=== PATIENT | female | born 1940 | race Native Hawaiian/Other Pacific Islander ===

== ENCOUNTER 2018-10-24 00:41 | Inpatient (IN) ==
[2018-10-24] MEDS ORDERED: Sod Chloride 0.9% Inj 1,000 ML IV.SIG ONE (01:48)
[2018-10-24] MEDS ORDERED: Morphine Inj 4 MG/ML Vial IV.PUSH ONE (01:48)
--- NOTE | 2018-10-24 02:14 | CT ---
EXAM DATE: 10/24/2018 2:06 AM EST AGE/SEX: 77 years / Female INDICATIONS: Abdomen pain. CLINICAL DATA: This is the patient's initial encounter. Patient reports that signs and symptoms have been present for 1 day and indicates a pain score of 5/10. MEDICAL/SURGICAL HISTORY: None. None. RADIATION DOSE: 8.24 CTDI (mGy) COMPARISON: No prior exams available for comparison. TECHNIQUE: Multiple contiguous axial images were obtained through the abdomen. Images were obtained using multiple row detector helical technique. Using automated exposure control and adjustment of the mA and/or kV according to patient size, radiation dose was kept as low as reasonably achievable to o btain optimal diagnostic quality images. DICOM format image data is available electronically for rev iew and comparison. FINDINGS: Breathing motion degraded. Lower Lungs: The visualized lower lungs are clear. Liver: The liver has a homogeneous density without space-occupying lesion. There is no dilation of th e biliary tree. Gallbladder is well distended. No calcified stone, wall thickening, or surrounding fl uid. Spleen: Homogeneous density without enlargement. Pancreas: Unremarkable without mass or calcification. Kidneys: Normal in size and shape. No evidence of mass or hydronephrosis. Adrenal Glands: Unremarkable. Aorta: The aorta and proximal iliac vessels are grossly unremarkable without aneurysmal dilation. Bowel/Mesentery: The bowel loops are grossly unremarkable. The cecum and sigmoid colon have a normal configuration. The appendix is not definitively identified but no inflammatory process observed with in the right lower quadrant. Abdominal Wall: Intact. Retroperitoneum: No evidence of adenopathy in the retrocrural, para-aortic, or deep pelvic regions. Bladder: Contours are smooth. Reproductive Organs: Prior hysterectomy. No abnormal masses or calcifications seen. Inguinal: The inguinal region is unremarkable without evidence of adenopathy. Bony Structures: A degenerative and scoliotic spine. CONCLUSION: 1. The gallbladder is well distended but no calcified stones, wall thickening, or surrounding fluid observed. Otherwise, unremarkable exam. Electronically signed by: Harpal Love MD Board Certified Radiologist 10/24/2018 2:13 AM EST
--- NOTE | 2018-10-24 02:16 | ED ---
HPI General Chief Complaint: Abdominal Pain Stated Complaint: Medical,Evac Time Seen by Provider: 10/24/18 01:16 Source: family Mode of arrival: ambulatory Limitations: no limitations History of Present Illness HPI narrative: 77-year-old female was brought to the emergency room by her daughter with history of abdominal pain that started around noon yesterday. Patient does not speak Welsh but the family is there translating. As per the granddaughter the pain seems to wax and wane. Patient has been quite uncomfortable. She has vomited 3 or 4 times but mostly mucus was noticed. No bowel movement in past 24 hours. Patient seemed quite uncomfortable but the vital signs were stable. She has a previous history of hysterectomy. No aggravating or relieving symptoms identified of the pain. The location of the pain is mostly upper abdomen radiating from the epigastrium to bilateral upper quadrants. Related Data Home Medications Medication Instructions Recorded Confirmed allopurinol 100 mg PO DAILY 10/24/18 10/24/18 amlodipine 5 mg PO DAILY 10/24/18 10/24/18 anastrozole 1 mg PO DAILY 10/24/18 10/24/18 atorvastatin 10 mg PO DAILY 10/24/18 10/24/18 furosemide 20 mg PO DAILY 10/24/18 10/24/18 gabapentin 300 mg PO DAILY 10/24/18 10/24/18 isosorbide mononitrate 30 mg PO DAILY 10/24/18 10/24/18 loratadine 10 mg DAILY 10/24/18 10/24/18 losartan 50 mg PO DAILY 10/24/18 10/24/18 metformin 1,000 mg PO QPM 10/24/18 10/24/18 ranitidine HCl 150 mg PO DAILY 10/24/18 10/24/18 Previous Rx's Medication Instructions Recorded amoxicillin-pot clavulanate 1 tab PO Q12H #20 tab 10/26/18 [Augmentin] Allergies Allergy/AdvReac Type Severity Reaction Status Date / Time No Known Allergies Allergy Verified 10/24/18 01:48 Review of Systems ROS: all other systems reviewed are negative [facility] Medical History Medical History H/O: hysterectomy (Acute) Hypertension (Acute) Diabetes (Acute) Hx of breast cancer (Acute) Social History Social History Substance History: No History of Abuse Second Hand Smoke Exposure: No Smoking Status: Never smoker How Often Do You Have a Drink Containing Alcohol: Never Recent Travel in [facility] within the Last 8 Weeks: No Recent Out of Country Travel within the Last 8 Weeks: No Immunization History Tetanus Immunization: Unsure Exam Narrative Exam Narrative: GENERAL: Awake, alert, significant distress and anxious SKIN: Focused skin assessment warm/dry. HEAD: Atraumatic. Normocephalic. EYES: Pupils equal and round. No scleral icterus. No injection or drainage. ENT: No nasal bleeding or discharge. Mucous membranes pink and moist. NECK: Trachea midline. No JVD. CARDIOVASCULAR: Regular rate and rhythm. No murmur appreciated. RESPIRATORY: No accessory muscle use. Clear to auscultation. Breath sounds equal bilaterally. GASTROINTESTINAL: Abdomen soft, non-tender, nondistended. Hepatic and splenic margins not palpable. Hyperactive bowel sounds MUSCULOSKELETAL: No obvious deformities. No clubbing. No cyanosis. No edema. NEUROLOGICAL: Awake and alert. No obvious cranial nerve deficits. Motor grossly within normal limits. Normal speech. PSYCHIATRIC: Appropriate mood and affect; insight and judgment normal. Course Initial Documented Vital Signs Temperature 98.8 F 10/24/18 00:42 Pulse Rate 91 H 10/24/18 00:42 Respiratory Rate 16 10/24/18 00:42 Blood Pressure 148/74 H 10/24/18 00:42 Pulse Oximetry 99 10/24/18 00:42 Last Documented Vital Signs Temperature 97.6 F 10/26/18 12:00 Pulse Rate 81 10/26/18 12:00 Respiratory Rate 18 10/26/18 12:00 Blood Pressure 156/77 H 10/26/18 12:00 Pulse Oximetry 100 10/26/18 12:00 Critical Care Time Critical Care Time: Yes Total Critical Care Time: 30 Attestation: Aggregate critical care time was 30 minutes. Time to perform other separately billable procedures was not included in the critical care time. My time did not include minutes spent treating any other patients simultaneously or on activities that did not directly contribute to the patient's treatment. The services I provided to this patient were to treat and/or prevent clinically significant deterioration that could result in: Sepsis, sepsis protocol I provided critical care services requiring my management, as noted below: Chart data review, documentation time, medication orders and management, vital sign assessments/reviewing monitor data, ordering and reviewing lab tests, ordering and interpreting/reviewing x-rays and diagnostic studies, care of the patient and discussion of the patient with the admitting physicians. Medical Decision Making MDM Narrative Medical decision making narrative: 2:15 AM my suspicion was high for small bowel obstruction. Of ordered blood work and a CT scan. Patient has been given pain medication and 1 L of IV fluid. Awaiting for the CT scan report as well as blood test result. I will reassess the patient in a little bit. 3:[address] scan does not show any small bowel obstruction but significantly dilated gallbladder without any stones. Blood test is suggestive of significant leukocytosis with left shift, elevated LFTs and bili. Lactic acid was elevated. I have ordered IV Zosyn and vancomycin for aseptic coverage and MRCP. I discussed the case with GI Dr. Lerma who was okay with the current management. He also recommended to consult surgery. I discussed the case with Dr. Sarkar who is on for general surgeon. He is okay with the management as well. Patient will be admitted to the hospitalist. Awaiting for the hospitalist to call back. She has been hemodynamically stable. Family has been updated about this plan. 3:24 AM the lipase just came back and is significantly elevated. Her [place] criteria score is 2 Medical Screen Exam Complete: Yes Emergency Medical Condition: Yes Lab Data Result diagrams: 10/26/18 04:35 10/26/18 04:35 Lab Results 10/24/18 10/24/18 10/24/18 Range/Units 02:00 02:00 02:00 WBC 18.4 H (4.0-11.0) th/mm3 RBC 4.63 (4.00-5.30) mil/mm3 Hgb 11.9 (11.6-15.3) gm/dL Hct 37.3 (35.0-46.0) % MCV 80.6 (80.0-100.0) fL MCH 25.6 L (27.0-34.0) pg MCHC 31.7 L (32.0-36.0) % RDW 15.4 (11.6-17.2) % Plt Count 230 (150-450) th/mm3 MPV 9.5 (7.0-11.0) fL Neut % (Auto) 94.0 H (16.0-70.0) % Lymph % (Auto) 1.8 L (9.0-44.0) % [place] % (Auto) 3.8 (0.0-8.0) % Eos % (Auto) 0.0 (0.0-4.0) % Baso % (Auto) 0.4 (0.0-2.0) % Neut # (Auto) 17.3 H (1.8-7.7) th/mm3 Lymph # (Auto) 0.3 L (1.0-4.8) th/mm3 [place] # (Auto) 0.7 (0.0-0.9) th/mm3 Eos # (Auto) 0.0 (0.0-0.4) th/mm3 Baso # (Auto) 0.1 (0.0-0.2) th/mm3 WBC Differential . Differential Comment Auto diff final PT 10.7 (9.8-11.6) sec INR 1.1 Ratio Sodium 135 L (136-145) meq/L Potassium 4.2 (3.5-5.1) meq/L Chloride 101 (98-107) meq/L Carbon Dioxide 23.3 (21.0-32.0) meq/L Anion Gap 11 (5-15) meq/L BUN 17 (7-18) mg/dL Creatinine 1.23 H (0.50-1.00) mg/dL Estimated GFR 42 L (>89) mL/min POC Glucose (68-110) mg/dl Random Glucose 152 H (74-106) mg/dL Lactic Acid (0.4-2.0) mmol/L Calcium 8.8 (8.5-10.1) mg/dL Magnesium 1.4 L (1.5-2.5) mg/dL Iron (50-170) mcg/dL TIBC (250-450) mcg/dL % Saturation (20-50) % Ferritin (8-252) ng/mL Total Bilirubin 2.0 H (0.2-1.0) mg/dL AST 181 H (15-37) U/L ALT 120 H (10-53) U/L Alkaline Phosphatase 83 (45-117) U/L Troponin I Less than 0.02 L (0.02-0.05) ng/mL Total Protein 8.1 (6.4-8.2) g/dL Albumin 3.8 (3.4-5.0) g/dL Triglycerides (42-150) mg/dL Lipase 75959 H (73-393) U/L Urine Color (Yellw/Straw) Urine Clarity (Clear) Urine pH (5.0-8.5) Ur Specific [place] (1.002-1.035) Urine Protein (Neg-Trace) mg/dL Urine Glucose (UA) (Negative) mg/dL Urine Ketones (Negative) mg/dL Urine Occult Blood (Negative) Urine Nitrate (Negative) Urine Bilirubin (Negative) Urine Urobilinogen (Less than 2) mg/dL Ur Leukocyte Esterase (Negative) Urine RBC (0-3) /hpf Ur Squamous Epith Cells (0-5) /hpf Micro UA Comment Ur Microscopic Review Urine Culture Comments 10/24/18 10/24/18 10/24/18 Range/Units 02:30 04:25 05:10 WBC (4.0-11.0) th/mm3 RBC (4.00-5.30) mil/mm3 Hgb (11.6-15.3) gm/dL Hct (35.0-46.0) % MCV (80.0-100.0) fL MCH (27.0-34.0) pg MCHC (32.0-36.0) % RDW (11.6-17.2) % Plt Count (150-450) th/mm3 MPV (7.0-11.0) fL Neut % (Auto) (16.0-70.0) % Lymph % (Auto) (9.0-44.0) % [place] % (Auto) (0.0-8.0) % Eos % (Auto) (0.0-4.0) % Baso % (Auto) (0.0-2.0) % Neut # (Auto) (1.8-7.7) th/mm3 Lymph # (Auto) (1.0-4.8) th/mm3 [place] # (Auto) (0.0-0.9) th/mm3 Eos # (Auto) (0.0-0.4) th/mm3 Baso # (Auto) (0.0-0.2) th/mm3 WBC Differential Differential Comment PT (9.8-11.6) sec INR Ratio Sodium (136-145) meq/L Potassium (3.5-5.1) meq/L Chloride (98-107) meq/L Carbon Dioxide (21.0-32.0) meq/L Anion Gap (5-15) meq/L BUN (7-18) mg/dL Creatinine (0.50-1.00) mg/dL Estimated GFR (>89) mL/min POC Glucose (68-110) mg/dl Random Glucose (74-106) mg/dL Lactic Acid 2.7 H 2.8 H (0.4-2.0) mmol/L Calcium (8.5-10.1) mg/dL Magnesium (1.5-2.5) mg/dL Iron (50-170) mcg/dL TIBC (250-450) mcg/dL % Saturation (20-50) % Ferritin (8-252) ng/mL Total Bilirubin (0.2-1.0) mg/dL AST (15-37) U/L ALT (10-53) U/L Alkaline Phosphatase (45-117) U/L Troponin I (0.02-0.05) ng/mL Total Protein (6.4-8.2) g/dL Albumin (3.4-5.0) g/dL Triglycerides (42-150) mg/dL Lipase (73-393) U/L Urine Color Yellow (Yellw/Straw) Urine Clarity Clear (Clear) Urine pH 7.0 (5.0-8.5) Ur Specific [place] 1.009 (1.002-1.035) Urine Protein Negative (Neg-Trace) mg/dL Urine Glucose (UA) Negative (Negative) mg/dL Urine Ketones Negative (Negative) mg/dL Urine Occult Blood Negative (Negative) Urine Nitrate Negative (Negative) Urine Bilirubin Negative (Negative) Urine Urobilinogen Less than 2 (Less than 2) mg/dL Ur Leukocyte Esterase Negative (Negative) Urine RBC 1 (0-3) /hpf Ur Squamous Epith Cells <1 (0-5) /hpf Micro UA Comment Culture not ind Ur Microscopic Review Not Reportable Urine Culture Comments Culture not ind 10/24/18 10/24/18 10/24/18 Range/Units 08:14 12:00 12:21 WBC (4.0-11.0) th/mm3 RBC (4.00-5.30) mil/mm3 Hgb (11.6-15.3) gm/dL Hct (35.0-46.0) % MCV (80.0-100.0) fL MCH (27.0-34.0) pg MCHC (32.0-36.0) % RDW (11.6-17.2) % Plt Count (150-450) th/mm3 MPV (7.0-11.0) fL Neut % (Auto) (16.0-70.0) % Lymph % (Auto) (9.0-44.0) % [place] % (Auto) (0.0-8.0) % Eos % (Auto) (0.0-4.0) % Baso % (Auto) (0.0-2.0) % Neut # (Auto) (1.8-7.7) th/mm3 Lymph # (Auto) (1.0-4.8) th/mm3 [place] # (Auto) (0.0-0.9) th/mm3 Eos # (Auto) (0.0-0.4) th/mm3 Baso # (Auto) (0.0-0.2) th/mm3 WBC Differential Differential Comment PT (9.8-11.6) sec INR Ratio Sodium (136-145) meq/L Potassium (3.5-5.1) meq/L Chloride (98-107) meq/L Carbon Dioxide (21.0-32.0) meq/L Anion Gap (5-15) meq/L BUN (7-18) mg/dL Creatinine (0.50-1.00) mg/dL Estimated GFR (>89) mL/min POC Glucose 126 H 96 (68-110) mg/dl Random Glucose (74-106) mg/dL Lactic Acid (0.4-2.0) mmol/L Calcium (8.5-10.1) mg/dL Magnesium (1.5-2.5) mg/dL Iron (50-170) mcg/dL TIBC (250-450) mcg/dL % Saturation (20-50) % Ferritin (8-252) ng/mL Total Bilirubin (0.2-1.0) mg/dL AST (15-37) U/L ALT (10-53) U/L Alkaline Phosphatase (45-117) U/L Troponin I (0.02-0.05) ng/mL Total Protein (6.4-8.2) g/dL Albumin (3.4-5.0) g/dL Triglycerides 48 (42-150) mg/dL Lipase (73-393) U/L Urine Color (Yellw/Straw) Urine Clarity (Clear) Urine pH (5.0-8.5) Ur Specific [place] (1.002-1.035) Urine Protein (Neg-Trace) mg/dL Urine Glucose (UA) (Negative) mg/dL Urine Ketones (Negative) mg/dL Urine Occult Blood (Negative) Urine Nitrate (Negative) Urine Bilirubin (Negative) Urine Urobilinogen (Less than 2) mg/dL Ur Leukocyte Esterase (Negative) Urine RBC (0-3) /hpf Ur Squamous Epith Cells (0-5) /hpf Micro UA Comment Ur Microscopic Review Urine Culture Comments 10/24/18 10/24/18 10/25/18 Range/Units 13:44 13:44 05:00 WBC (4.0-11.0) th/mm3 RBC (4.00-5.30) mil/mm3 Hgb (11.6-15.3) gm/dL Hct (35.0-46.0) % MCV (80.0-100.0) fL MCH (27.0-34.0) pg MCHC (32.0-36.0) % RDW (11.6-17.2) % Plt Count (150-450) th/mm3 MPV (7.0-11.0) fL Neut % (Auto) (16.0-70.0) % Lymph % (Auto) (9.0-44.0) % [place] % (Auto) (0.0-8.0) % Eos % (Auto) (0.0-4.0) % Baso % (Auto) (0.0-2.0) % Neut # (Auto) (1.8-7.7) th/mm3 Lymph # (Auto) (1.0-4.8) th/mm3 [place] # (Auto) (0.0-0.9) th/mm3 Eos # (Auto) (0.0-0.4) th/mm3 Baso # (Auto) (0.0-0.2) th/mm3 WBC Differential Differential Comment PT (9.8-11.6) sec INR Ratio Sodium 139 140 (136-145) meq/L Potassium 3.9 3.9 (3.5-5.1) meq/L Chloride 106 110 H (98-107) meq/L Carbon Dioxide 23.3 19.2 L (21.0-32.0) meq/L Anion Gap 10 11 (5-15) meq/L BUN 13 13 (7-18) mg/dL Creatinine 0.99 1.04 H (0.50-1.00) mg/dL Estimated GFR (>89) mL/min POC Glucose (68-110) mg/dl Random Glucose 87 88 (74-106) mg/dL Lactic Acid 1.5 (0.4-2.0) mmol/L Calcium 8.3 L 8.2 L (8.5-10.1) mg/dL Magnesium 1.4 L (1.5-2.5) mg/dL Iron (50-170) mcg/dL TIBC (250-450) mcg/dL % Saturation (20-50) % Ferritin (8-252) ng/mL Total Bilirubin 2.4 H 3.0 H (0.2-1.0) mg/dL AST 107 H 81 H (15-37) U/L ALT 101 H 85 H (10-53) U/L Alkaline Phosphatase 65 78 (45-117) U/L Troponin I (0.02-0.05) ng/mL Total Protein 6.7 D 6.6 (6.4-8.2) g/dL Albumin 2.9 L D 2.6 L (3.4-5.0) g/dL Triglycerides (42-150) mg/dL Lipase 08951 H 6004 H (73-393) U/L Urine Color (Yellw/Straw) Urine Clarity (Clear) Urine pH (5.0-8.5) Ur Specific [place] (1.002-1.035) Urine Protein (Neg-Trace) mg/dL Urine Glucose (UA) (Negative) mg/dL Urine Ketones (Negative) mg/dL Urine Occult Blood (Negative) Urine Nitrate (Negative) Urine Bilirubin (Negative) Urine Urobilinogen (Less than 2) mg/dL Ur Leukocyte Esterase (Negative) Urine RBC (0-3) /hpf Ur Squamous Epith Cells (0-5) /hpf Micro UA Comment Ur Microscopic Review Urine Culture Comments 10/25/18 10/25/18 10/25/18 Range/Units 05:00 07:34 11:52 WBC 9.9 (4.0-11.0) th/mm3 RBC 4.38 (4.00-5.30) mil/mm3 Hgb 11.4 L (11.6-15.3) gm/dL Hct 35.3 (35.0-46.0) % MCV 80.7 (80.0-100.0) fL MCH 26.1 L (27.0-34.0) pg MCHC 32.3 (32.0-36.0) % RDW 15.2 (11.6-17.2) % Plt Count 175 (150-450) th/mm3 MPV 9.2 (7.0-11.0) fL Neut % (Auto) 92.7 H (16.0-70.0) % Lymph % (Auto) 2.6 L (9.0-44.0) % [place] % (Auto) 4.2 (0.0-8.0) % Eos % (Auto) 0.1 (0.0-4.0) % Baso % (Auto) 0.4 (0.0-2.0) % Neut # (Auto) 9.2 H (1.8-7.7) th/mm3 Lymph # (Auto) 0.3 L (1.0-4.8) th/mm3 [place] # (Auto) 0.4 (0.0-0.9) th/mm3 Eos # (Auto) 0.0 (0.0-0.4) th/mm3 Baso # (Auto) 0.0 (0.0-0.2) th/mm3 WBC Differential . Differential Comment Auto diff final PT (9.8-11.6) sec INR Ratio Sodium (136-145) meq/L Potassium (3.5-5.1) meq/L Chloride (98-107) meq/L Carbon Dioxide (21.0-32.0) meq/L Anion Gap (5-15) meq/L BUN (7-18) mg/dL Creatinine (0.50-1.00) mg/dL Estimated GFR (>89) mL/min POC Glucose 73 83 (68-110) mg/dl Random Glucose (74-106) mg/dL Lactic Acid (0.4-2.0) mmol/L Calcium (8.5-10.1) mg/dL Magnesium (1.5-2.5) mg/dL Iron (50-170) mcg/dL TIBC (250-450) mcg/dL % Saturation (20-50) % Ferritin (8-252) ng/mL Total Bilirubin (0.2-1.0) mg/dL AST (15-37) U/L ALT (10-53) U/L Alkaline Phosphatase (45-117) U/L Troponin I (0.02-0.05) ng/mL Total Protein (6.4-8.2) g/dL Albumin (3.4-5.0) g/dL Triglycerides (42-150) mg/dL Lipase (73-393) U/L Urine Color (Yellw/Straw) Urine Clarity (Clear) Urine pH (5.0-8.5) Ur Specific [place] (1.002-1.035) Urine Protein (Neg-Trace) mg/dL Urine Glucose (UA) (Negative) mg/dL Urine Ketones (Negative) mg/dL Urine Occult Blood (Negative) Urine Nitrate (Negative) Urine Bilirubin (Negative) Urine Urobilinogen (Less than 2) mg/dL Ur Leukocyte Esterase (Negative) Urine RBC (0-3) /hpf Ur Squamous Epith Cells (0-5) /hpf Micro UA Comment Ur Microscopic Review Urine Culture Comments 10/26/18 10/26/18 10/26/18 Range/Units 04:35 04:35 04:35 WBC 9.1 (4.0-11.0) th/mm3 RBC 3.94 L (4.00-5.30) mil/mm3 Hgb 10.2 L (11.6-15.3) gm/dL Hct 31.2 L (35.0-46.0) % MCV 79.2 L (80.0-100.0) fL MCH 25.8 L (27.0-34.0) pg MCHC 32.6 (32.0-36.0) % RDW 15.6 (11.6-17.2) % Plt Count 151 (150-450) th/mm3 MPV 9.8 (7.0-11.0) fL Neut % (Auto) 83.6 H (16.0-70.0) % Lymph % (Auto) 9.7 (9.0-44.0) % [place] % (Auto) 5.3 (0.0-8.0) % Eos % (Auto) 1.2 (0.0-4.0) % Baso % (Auto) 0.2 (0.0-2.0) % Neut # (Auto) 7.6 (1.8-7.7) th/mm3 Lymph # (Auto) 0.9 L (1.0-4.8) th/mm3 [place] # (Auto) 0.5 (0.0-0.9) th/mm3 Eos # (Auto) 0.1 (0.0-0.4) th/mm3 Baso # (Auto) 0.0 (0.0-0.2) th/mm3 WBC Differential . Differential Comment Auto diff final PT (9.8-11.6) sec INR Ratio Sodium 141 (136-145) meq/L Potassium 3.5 (3.5-5.1) meq/L Chloride 113 H (98-107) meq/L Carbon Dioxide 19.8 L (21.0-32.0) meq/L Anion Gap 8 (5-15) meq/L BUN 11 (7-18) mg/dL Creatinine 0.75 (0.50-1.00) mg/dL Estimated GFR (>89) mL/min POC Glucose (68-110) mg/dl Random Glucose 89 (74-106) mg/dL Lactic Acid (0.4-2.0) mmol/L Calcium 7.8 L (8.5-10.1) mg/dL Magnesium (1.5-2.5) mg/dL Iron 30 L (50-170) mcg/dL TIBC 218 L (250-450) mcg/dL % Saturation 13.7 L (20-50) % Ferritin 91 (8-252) ng/mL Total Bilirubin 2.5 H (0.2-1.0) mg/dL AST 66 H (15-37) U/L ALT 68 H (10-53) U/L Alkaline Phosphatase 83 (45-117) U/L Troponin I (0.02-0.05) ng/mL Total Protein 6.0 L D (6.4-8.2) g/dL Albumin 2.3 L (3.4-5.0) g/dL Triglycerides (42-150) mg/dL Lipase 4954 H (73-393) U/L Urine Color (Yellw/Straw) Urine Clarity (Clear) Urine pH (5.0-8.5) Ur Specific [place] (1.002-1.035) Urine Protein (Neg-Trace) mg/dL Urine Glucose (UA) (Negative) mg/dL Urine Ketones (Negative) mg/dL Urine Occult Blood (Negative) Urine Nitrate (Negative) Urine Bilirubin (Negative) Urine Urobilinogen (Less than 2) mg/dL Ur Leukocyte Esterase (Negative) Urine RBC (0-3) /hpf Ur Squamous Epith Cells (0-5) /hpf Micro UA Comment Ur Microscopic Review Urine Culture Comments Imaging Data Radiologist's impression: Abdomen/Pelvis CT 10/24/18 01:48 CONCLUSION: 1. The gallbladder is well distended but no calcified stones, wall thickening, or surrounding fluid observed. Otherwise, unremarkable exam. Chest X-Ray 10/24/18 02:22 CONCLUSION: No acute cardiopulmonary disease. Cholangiopancreatography MRI 10/24/18 03:06 CONCLUSION: 1. No gallstones or inflammatory change involving the gallbladder. ECG Data Attestation: I personally reviewed and interpreted this ECG as follows: Interpretation: Twelve-lead EKG was reviewed by me. Normal sinus rhythm, normal axis, nonspecific ST-T wave changes. Heart rate of 78 bpm. Discharge Plan Discharge Disposition Patient Disposition: ED Admit(ED Internal Use Only) Discharge Condition Condition: Good Discharge Order Discharge Orders: Discharge Order (Routine); Ordered 10/26/18 Ordered By: Reema Hess ED Use Only Admit Order (Routine); Ordered 10/24/18 Ordered By: Denisha Crowell Discharge Details Anticipated Discharge Date: 10/26/18 Physicians Team ED Provider: Denisha Crowell Primary Care Provider: UNKNOWN, Attending Provider: Reema Hess Other Providers: Sami Lerma ; Ed Sarkar ; [facility],Insurance Status ED Status: Left Department Discharge Information Discharge Date/Time: 10/24/18 05:35
[2018-10-24 02:19] LABS: Baso # (Auto) 0.1 th/mm3 (0.0-0.2); Baso % (Auto) 0.4 % (0.0-2.0); Hematocrit 37.3 % (35.0-46.0); Hemoglobin 11.9 gm/dL (11.6-15.3); Lymph # (Auto) 0.3 th/mm3 (1.0-4.8); Lymph % (Auto) 1.8 % (9.0-44.0); Mean Corpuscular HGB Conc 31.7 % (32.0-36.0); Mean Corpuscular Hemoglobin 25.6 pg (27.0-34.0); Mean Corpuscular Volume 80.6 fL (80.0-100.0); Mean Platelet Volume 9.5 fL (7.0-11.0); Mono # (Auto) 0.7 th/mm3 (0.0-0.9); Mono % (Auto) 3.8 % (0.0-8.0); Neut # (Auto) 17.3 th/mm3 (1.8-7.7); Platelet Count 230 th/mm3 (150-450); Red Blood Count 4.63 mil/mm3 (4.00-5.30); Red Cell Distribution Width 15.4 % (11.6-17.2); White Blood Count 18.4 th/mm3 (4.0-11.0)
[2018-10-24 02:29] LABS: INR 1.1 Ratio; Prothrombin Time 10.7 sec (9.8-11.6)
[2018-10-24 02:42] LABS: Alkaline Phosphatase 83 U/L (45-117); Total Protein 8.1 g/dL (6.4-8.2)
[2018-10-24 02:45] LABS: Alanine Aminotransferase 120 U/L (10-53); Albumin 3.8 g/dL (3.4-5.0); Anion Gap 11 meq/L (5-15); Blood Urea Nitrogen 17 mg/dL (7-18); Calcium 8.8 mg/dL (8.5-10.1); Carbon Dioxide 23.3 meq/L (21.0-32.0); Chloride 101 meq/L (98-107); Glomerular Filtration Rate 42 mL/min (>89); Glucose,Random 152 mg/dL (74-106); Sodium 135 meq/L (136-145)
[2018-10-24 02:46] LABS: Aspartate Aminotransferase 181 U/L (15-37); Magnesium 1.4 mg/dL (1.5-2.5); Potassium 4.2 meq/L (3.5-5.1)
[2018-10-24] MEDS ORDERED: Vancomycin Inj 1,000 MG in Sodium Chlor 0.9% Inj 250 ML IV.SIG ONE (03:04)
[2018-10-24] MEDS ORDERED: Mag Sulf 1 gm/100 ml Premix 100 ML IV.SIG ONE ×2 (03:06→10:00)
--- NOTE | 2018-10-24 03:13 | XR ---
EXAM DATE: 10/24/2018 3:11 AM EST AGE/SEX: 77 years / Female INDICATIONS: Abdomen pain today. CLINICAL DATA: This is the patient's initial encounter. Patient reports that signs and symptoms have been present for 1 day and indicates a pain score of 5/10. MEDICAL/SURGICAL HISTORY: None. None. COMPARISON: No prior exams available for comparison. FINDINGS: A single AP view of the chest demonstrates the lungs to be symmetrically aerated without evidence of mass, infiltrate or effusion. The cardiomediastinal contours are unremarkable. Aorta is calcified an d mildly tortuous. A degenerative thoracic spine. Degenerative changes involving the shoulders bilate rally. CONCLUSION: No acute cardiopulmonary disease. Electronically signed by: Harpal Love MD Board Certified Radiologist 10/24/2018 3:12 AM EST
[2018-10-24] MEDS ORDERED: Sod Chloride 0.9% Inj 1,000 ML IV.SIG SCH (03:15)
[2018-10-24] MEDS ORDERED: Piperacil/Tazo 4.5 GM Premix 4.5 GM/100 ML BAG IV.SIG SCH (03:15)
[2018-10-24 03:17] LABS: Lipase 52220 U/L (73-393)
[2018-10-24] MEDS ORDERED: Morphine Sulfate Inj 2 MG/ML Vial IV.PUSH PRN (03:26)
[2018-10-24] MEDS ORDERED: Bisacodyl 10 MG Supp RECTAL PRN (03:26)
[2018-10-24] MEDS ORDERED: Acetaminophen 325 MG Tablet PO PRN (03:26)
--- NOTE | 2018-10-24 04:07 | P.HPIM ---
History of Present Illness Primary Care Physician: UNKNOWN History of Present Illness: This is a 77-year-old [place] female with PMH of HTN , DM and h/o Breast CA who was brought to the ER for c/o abdominal pain, nausea and vomiting. History obtained from family at bedside. State pt w/ acute onset abdominal pain, severe, 10/10, located in RUQ, non-radiating, associated w / nausea, vomiting and decreased PO intake. No fever or diarrhea. No h/o similar symptoms. On arrival, BP 148/74, HR 91, O2 sat 99% on RA, Afebrile. WBC 18.4. INR 1.1. Creatinine 1.23, no previous labs for comparison. Lactic Acid 2.7. Magnesium 1.4. Total Bili 2.0. AST 181, ALT 120, ALP 83. Troponin negative. Lipase 52,220. CXR negative. CT Abdomen/Pelvis distention of gallbladder but no stones or thickening. S/p IV Abx, Gen Sx and GI consulted by ER physician, will eval in am. MRCP pending. Diagnosis (1) Sepsis: (2) Cholecystitis: (3) DARREN (acute kidney injury): (4) Pancreatitis: Review of Systems PAST FAMILY HISTORY: Reviewed. No h/o DM or CAD Review of Systems: all other systems reviewed are negative [facility] Medical History Medical History Diabetes (Acute) Hx of breast cancer (Acute) Hypertension (Acute) Social History Social History Substance History: No History of Abuse Second Hand Smoke Exposure: No Smoking Status: Never smoker How Often Do You Have a Drink Containing Alcohol: Never Recent Travel in [place] within the Last 8 Weeks: No Recent Out of Country Travel within the Last 8 Weeks: Yes Immunization History Tetanus Immunization: Unsure Medications and Allergies Allergies Allergy/AdvReac Type Severity Reaction Status Date / Time No Known Allergies Allergy Verified 10/24/18 01:48 Home Medications Medication Instructions Recorded Confirmed Type allopurinol 100 mg PO DAILY 10/24/18 10/24/18 History amlodipine 5 mg PO DAILY 10/24/18 10/24/18 History anastrozole 1 mg PO DAILY 10/24/18 10/24/18 History atorvastatin 10 mg PO DAILY 10/24/18 10/24/18 History furosemide 20 mg PO DAILY 10/24/18 10/24/18 History gabapentin 300 mg PO DAILY 10/24/18 10/24/18 History isosorbide mononitrate 30 mg PO DAILY 10/24/18 10/24/18 History loratadine 10 mg DAILY 10/24/18 10/24/18 History losartan 50 mg PO DAILY 10/24/18 10/24/18 History metformin 1,000 mg PO QPM 10/24/18 10/24/18 History ranitidine HCl 150 mg PO DAILY 10/24/18 10/24/18 History Active Medications: Active Medications Acetaminophen (Tylenol) 650 mg PO Q4H PRN PRN Reason: Temp > 100.4 Bisacodyl (Dulcolax Supp) 10 mg RECTAL DAILY PRN PRN Reason: SEVERE CONSITIPATION Piperacillin/Tazobactam/Dextrose (Zosyn 4.5 Gm Premix) 4.5 gm in 100 mls @ 200 mls/hr IV.SIG ONCE PILAR Vancomycin HCl 1,000 mg/ (Sodium Chloride) 250 mls @ 250 mls/hr IV.SIG ONCE ONE Stop: 10/24/18 04:03 Magnesium Sulfate/Dextrose (Magnesium Sulfate 1 Gm/D5w 100 Ml Premix) 100 mls @ 100 mls/hr IV.SIG ONCE ONE Stop: 10/24/18 04:05 Sodium Chloride (Ns Inj) 1,000 mls @ 1,000 mls/hr IV.SIG BOLUS PILAR Stop: 10/24/18 04:14 Piperacillin/Tazobactam/Dextrose (Zosyn 4.5 Gm Premix) 4.5 gm in 100 mls @ 200 mls/hr IV.SIG Q6H PILAR Sodium Chloride (Ns Inj) 1,000 mls @ 100 mls/hr IV.CONT .Q10H PILAR Morphine Sulfate (Morphine Inj) 2 mg IV.PUSH Q4H PRN PRN Reason: PAIN SCALE 6 TO 10 Ondansetron HCl (Zofran Inj) 4 mg IV.PUSH Q6H PRN PRN Reason: NAUSEA OR VOMITING Sodium Chloride (Ns Flush) 2 ml IV.FLUSH PRN PRN PRN Reason: FLUSH AFTER USING IV ACCESS Sodium Chloride (Ns Flush) 2 ml IV.FLUSH PRN PRN PRN Reason: FLUSH AFTER USING IV ACCESS Sodium Chloride (Ns Flush) 2 ml IV.FLUSH BID PILAR Physical Exam Vital signs: Vital Signs 10/24/18 00:42 Temperature 98.8 F Pulse Rate 91 H Respiratory Rate 16 Blood Pressure 148/74 H Pulse Oximetry 99 Intake & Output 10/23/18 10/23/18 10/24/18 06:59 18:59 06:59 Weight 72.575 kg Narrative: PE: GENERAL: Pleasant elderly [place] female in no acute distress, appears to feel unwell. Daughter and granddaughter at bedside SKIN: Focused skin assessment warm and dry. HEENT: PERRLA, EOMI. No scleral icterus or conjunctival pallor. No lid lag or facial droop. CARDIOVASCULAR: Regular rate and rhythm. No obvious murmurs to auscultation. No chest tenderness to palpation. RESPIRATORY: No obvious rhonchi or wheezing. Clear to auscultation. Breath sounds equal bilaterally. GASTROINTESTINAL: Abdomen soft, RUQ tenderness to palpation, nondistended. BS normal. MUSCULOSKELETAL: Extremities without clubbing, cyanosis, or edema. No obvious deformities. NEUROLOGICAL: Awake, alert and oriented x4. No focal neurologic deficits. Moving both upper and lower extremities spontaneously. PSYCHIATRIC: Appropriate mood and affect. Insight and judgment normal. Results Labs CBC & Chem 7: 10/24/18 02:00 10/24/18 02:00 Imaging Impressions Abdomen/Pelvis CT 10/24/18 01:48 CONCLUSION: 1. The gallbladder is well distended but no calcified stones, wall thickening, or surrounding fluid observed. Otherwise, unremarkable exam. Chest X-Ray 10/24/18 02:22 CONCLUSION: No acute cardiopulmonary disease. Caprini VTE Risk Assessment Caprini VTE Risk Assessment: No/Low Risk (score <= 1) Caprini Risk Assessment Model: Point Value = 1 Point Value = 2 Point Value = 3 Point Value = 5 Age 41-60 Minor surgery BMI > 25 kg/m2 Swollen legs Varicose veins or History of unexplained or recurrent spontaneous Oral contraceptives or hormone replacement Sepsis (< 1 month) Serious lung disease, including pneumonia (< 1 month) Abnormal pulmonary function Acute myocardial infarction Congestive heart failure (< 1 month) History of inflammatory bowel disease Medical patient at bed rest Age 61-74 Arthroscopic surgery Major open surgery (> 45 min) Laparoscopic surgery (> 45 min) Malignancy Confined to bed (> 72 hours) Immobilizing plaster cast Central venous access Age >= 75 History of VTE Family history of VTE Factor V Leiden Prothrombin [id number] Lupus anticoagulant Anticardiolipin antibodies Elevated serum homocysteine Heparin-induced thrombocytopenia Other congenital or acquired thrombophilia Stroke (< 1 month) Elective arthroplasty Hip, pelvis, or leg fracture Acute spinal cord injury (< 1 month) Prophylaxis Regimen: Total Risk Factor Score Risk Level Prophylaxis Regimen 0-1 Low Early ambulation 2 Moderate Order ONE of the following: *Sequential Compression Device (SCD) *Heparin 5000 units SQ BID 3-4 Higher Order ONE of the following medications: *Heparin 5000 units SQ TID *Enoxaparin/Lovenox 40 mg SQ daily (WT < 150 kg, CrCl > 30 mL/min) *Enoxaparin/Lovenox 30 mg SQ daily (WT < 150 kg, CrCl > 10-29 mL/min) *Enoxaparin/Lovenox 30 mg SQ BID (WT < 150 kg, CrCl > 30 mL/min) AND/OR *Sequential Compression Device (SCD) 5 or more Highest Order ONE of the following medications: *Heparin 5000 units SQ TID (Preferred with Epidurals) *Enoxaparin/Lovenox 40 mg SQ daily (WT < 150 kg, CrCl > 30 mL/min) *Enoxaparin/Lovenox 30 mg SQ daily (WT < 150 kg, CrCl > 10-29 mL/min) *Enoxaparin/Lovenox 30 mg SQ BID (WT < 150 kg, CrCl > 30 mL/min) AND *Sequential Compression Device (SCD) Assessment and Plan (1) Sepsis: Code(s): A41.9 - Sepsis, unspecified organism Status: Acute (2) Cholecystitis: Code(s): K81.9 - Cholecystitis, unspecified Status: Acute (3) DARREN (acute kidney injury): Code(s): N17.9 - Acute kidney failure, unspecified Status: Acute (4) Pancreatitis: Code(s): K85.90 - Acute pancreatitis without necrosis or infection, unspecified Status: Acute Plan A/P: 1. Sepsis: HR 90's, WBC 18, Lactic Acid 2.4, Source-Cholecystitis/Cholangitis , continue w/ IV Abx, follow up cultures, IVF. 2. Cholecystitis/Cholangitis: severe RUQ pain w/ associated nausea/vomiting, Gallbladder US w/ thickening of gallbladder but no stone, MRCP pending, Dr. Lerma and Dr. Sarkar consulted, will eval in am. NPO, IVF, continue IV Abx, analgesics/antiemetics as needed. 3. Pancreatitis: secondary to above, Lipase 52,000, NPO, IVF, repeat lipase in am. 4. DARREN: Creatinine 1.23, no previous labs for comparison, presumably new due to dehydration, IVF for hydration, monitor I/O, repeat labs in am. 5. DVT Prophylaxis: SCD/Teds 6. Social work for d/c planning as needed. 7. Case discussed w/ ER physician at length, labs/records/imaging reviewed by me. _ (1) Pancreatitis Qualifiers: Chronicity: acute Pancreatitis type: biliary
[2018-10-24 04:51] LABS: Bilirubin,Urine Negative (Negative); Clarity,Urine Clear (Clear); Color,Urine Yellow (Yellw/Straw); Glucose,Urine (UA) Negative (Negative); Leukocyte Esterase,Urine Negative (Negative); Nitrite,Urine Negative (Negative); Specific Gravity,Urine 1.009 (1.002-1.035); Squamous Epithelial Cell,Urine <1 /hpf (0-5)
--- NOTE | 2018-10-24 05:05 | MR ---
EXAM DATE: 10/24/2018 4:58 AM EST AGE/SEX: 77 years / Female INDICATIONS: Abdominal pain. CLINICAL DATA: This is the patient's subsequent encounter. Patient reports that signs and symptoms h ave been present for 1 day and indicates a pain score of 4/10. MEDICAL/SURGICAL HISTORY: Carcinoma, breast. Hypertension. Diabetes. Mastectomy, bilateral. Hysterectomy. Knee replacement. COMPARISON: [facility] [place], CT ABDOMEN & PELVIS W/O CONTRAST, 10/24/2018.. . TECHNIQUE: Multiplanar, multisequence images of the abdomen were obtained without contrast including dedicated cholangiographic images. FINDINGS: Liver: The liver is homogeneous and normal in signal intensity with no focal defects. Intrahepatic Bile Ducts: There is no intrahepatic biliary ductal dilatation. Common Bile Duct: The common bile duct is normal in caliber at 7 mm. No filling defects or obstructi ng lesions are identified. Gallbladder: The gallbladder is normal with no evidence for cholelithiasis, gallbladder wall thicken ing, or pericholecystic fluid. Pancreas: The pancreas appears normal in signal with no focal parenchymal abnormalities. The pancrea tic duct is normal in caliber with no filling defects, or obstructing lesions identified. A scoliotic and degenerative lumbar spine. CONCLUSION: 1. No gallstones or inflammatory change involving the gallbladder. Electronically signed by: Harpal Love MD Board Certified Radiologist 10/24/2018 5:03 AM EST
[2018-10-24] MEDS: Sod Chloride 0.9% Inj 1,000 ML IV.CONT SCH ×3 (06:16→23:50)
--- NOTE | 2018-10-24 08:27 | P.PNIM ---
Subjective Interval history: Follow-up for pancreatitis, possible cholecystitis/ cholangitis. Patient is seen with her daughter and granddaughter at bedside who assist with translation. Patient reports feeling slightly better today, however still having diffuse upper abdominal pain, intermittent nausea, but no vomiting. Last normal bowel movement yesterday. Denies fevers or chills. Denies any other medical complaints. Physical Exam Vital signs: Vital Signs 10/24/18 00:42 10/24/18 04:00 10/24/18 07:59 Temperature 98.8 F 99.5 F 99.2 F Pulse Rate 91 H 86 85 Respiratory Rate 16 18 16 Blood Pressure 148/74 H 158/70 H 143/73 H Pulse Oximetry 99 94 L 96 Intake & Output 10/23/18 10/24/18 10/24/18 18:59 06:59 18:59 Intake Total 2350 / 2350 1100 / 1100 Balance 2350 / 2350 1100 / 1100 Weight 72.575 kg Intake: IV 1250 / 1250 1100 / 1100 Magnesium Sulfate 1 gm/D5W 100 100 / 100 ml Premix 100 ML @ 100 mls/hr IV.SIG ONCE ONE Rx#:[id number] NS Inj 1,000 ML @ 1000 mls/hr 1000 / 1000 1000 / 1000 IV.SIG BOLUS PILAR Rx#:[id number] Vancomycin Inj 1,000 MG In NS 250 / 250 Inj 250 ML @ 250 mls/hr IV.SIG ONCE ONE Rx#:[id number] Other 1100 / 1100 Other: Other Intake Source Saline Solution # Voids 1 Weight On Admission 72.575 kg Narrative: GENERAL: Pleasant elderly [place] female in no acute distress, appears to feel unwell. Daughter and granddaughter at bedside SKIN: Focused skin assessment warm and dry. HEENT: No scleral icterus or conjunctival pallor. No lid lag or facial droop. CARDIOVASCULAR: Regular rate and rhythm. No obvious murmurs to auscultation. RESPIRATORY: No accessory muscle use. Clear to auscultation. Breath sounds equal bilaterally. GASTROINTESTINAL: Abdomen soft, epigastric and RUQ tenderness to palpation, nondistended. BS normal. MUSCULOSKELETAL: Extremities without clubbing, cyanosis, or edema. No obvious deformities. NEUROLOGICAL: Awake, alert and oriented x4. No focal neurologic deficits. Moving both upper and lower extremities spontaneously. PSYCHIATRIC: Appropriate mood and affect. Insight and judgment normal. Results Labs CBC & Chem 7: 10/24/18 02:00 10/24/18 02:00 Imaging Imaging: Impressions Abdomen/Pelvis CT 10/24/18 01:48 CONCLUSION: 1. The gallbladder is well distended but no calcified stones, wall thickening, or surrounding fluid observed. Otherwise, unremarkable exam. Chest X-Ray 10/24/18 02:22 CONCLUSION: No acute cardiopulmonary disease. Cholangiopancreatography MRI 10/24/18 03:06 CONCLUSION: 1. No gallstones or inflammatory change involving the gallbladder. Assessment and Plan (1) Sepsis: Code(s): A41.9 - Sepsis, unspecified organism Status: Acute (2) Cholecystitis: Code(s): K81.9 - Cholecystitis, unspecified Status: Acute (3) DARREN (acute kidney injury): Code(s): N17.9 - Acute kidney failure, unspecified Status: Acute (4) Pancreatitis: Code(s): K85.90 - Acute pancreatitis without necrosis or infection, unspecified Status: Acute Plan 77-year-old [place] female with PMH of HTN, DM and h/o Breast CA who was brought to the ER for c/o acute onset of abdominal pain, nausea and vomiting. Sepsis: HR 90's, WBC 18, Lactic Acid 2.4, Source-Cholecystitis/Cholangitis -continue w/ IV Abx -follow up cultures -Give IVF. -Monitor CBC Acute Pancreatitis, possible cholecystitis/cholangitis: severe RUQ pain w/ associated nausea/vomiting, [place] [id number], Tbili 2.0, AST 181, ALT 120, Alk phos 83 -CT abdomen/pelvis reviewed, shows gallbladder is well distended but no calcified stones, wall thickening, or surrounding fluid observed. -MRCP shows No gallstones or inflammatory change involving the gallbladder -Keep NPO -Continue antibiotics with IV Zosyn -Supportive treatment with IV hydration, analgesics/antiemetics as needed. -Gastroenterology Dr. Lerma consulted -General surgery Dr. Sarkar consulted -Monitor lipase and LFTs DARREN: Creatinine 1.23, no previous labs for comparison, presumably new due to dehydration with recent vomiting and decreased oral intake -Give IVF for hydration -monitor I/O -repeat labs pending Hypomagnesemia: mag 1.4, suspect secondary to recent vomiting -give IV Mag 1G x2 now -repeat labs in am DVT Prophylaxis: SCD/Teds Progress Note: Quality VTE Deep Vein Thrombosis/Pulmonary Embolism Present on Admission: No _ (1) Pancreatitis Qualifiers: Acute pancreatitis complication: Chronicity: acute Pancreatitis type: biliary
[2018-10-24] MEDS: Piperacil/Tazo 4.5 GM Premix 4.5 GM/100 ML BAG IV.SIG SCH ×3 (09:41→21:38)
--- NOTE | 2018-10-24 09:45 | ECG ---
Date Performed: 10/24/2018 Time Performed: 01:53:36 PTAGE: 77 years EKG: Sinus rhythm WITH SINUS ARRHYTHMIA NORMAL ECG NO PREVIOUS TRACING DOCTOR: Shai Mancera Interpretating Date/Time 10/24/2018 09:43:39
--- NOTE | 2018-10-24 12:14 | P.CONGI ---
History of Present Illness Consult date: 10/24/18 Requesting physician: Jacqueline Sewell Consult reason: pancreatitis Chief complaint: Cholecystitis History of Present Illness: 77-year-old female with past medical history of hypertension, hyperlipidemia, diabetes and breast cancer who recently returned from several months in [facility]. 3 days ago she developed abdominal pain, nausea and vomiting. Pain was severe, located in the upper abdomen without radiation. No history of similar symptoms. No diarrhea or constipation. No hematemesis. No rectal bleeding or melena. Leukocytosis on initial labs with W BC 18.4. Normal H&H. AST 181, ALT 120, alk phos 8.3, bilirubin 2.0, lipase 52,220. No history of alcohol use or abuse. No new medications. CT of the abdomen pelvis showed distended gallbladder but no stones or thickening. MRCP showed normal gallbladder without cholelithiasis or wall thickening no pericholecystic fluid. No pancreatic abnormalities on imaging. Denies any history of heartburn, acid reflux or acid indigestion. <Sussy Akers - Last Filed: 10/24/18 12:14> PMFSH - History History Provided By: Patient, Family Member - Medical History Medical History: Medical History (Last Reviewed 10/24/18 @ 02:14 by Denisha Crowell MD) Diabetes Hx of breast cancer Hypertension - Tobacco History Second Hand Smoke Exposure: No Tobacco Use In Past 30 Days: No Smoking Status: Never smoker - Alcohol History How Often Do You Have a Drink Containing Alcohol: Never - Substance Use History Substance History: No History of Abuse - Travel History Recent Travel in the [place] Within the Last 8 Weeks: No Recent Travel Out of the Country Within the Last 8 Weeks: No - Immunization History Tetanus Immunization: Unsure Hx Influenza Vaccine This Season: Yes <Sussy Akers - Last Filed: 10/24/18 12:14> - Medical History Medical History: Medical History (Last Reviewed 10/24/18 @ 02:14 by Denisha Crowell MD) Diabetes Hx of breast cancer Hypertension <Sami Lerma - Last Filed: 10/24/18 20:27> Medications and Allergies Active Medications: Active Medications Acetaminophen (Tylenol) 650 mg PO Q4H PRN PRN Reason: Temp > 100.4 Bisacodyl (Dulcolax Supp) 10 mg RECTAL DAILY PRN PRN Reason: SEVERE CONSITIPATION Piperacillin/Tazobactam/Dextrose (Zosyn 4.5 Gm Premix) 4.5 gm in 100 mls @ 200 mls/hr IV.SIG ONCE PILAR Piperacillin/Tazobactam/Dextrose (Zosyn 4.5 Gm Premix) 4.5 gm in 100 mls @ 200 mls/hr IV.SIG Q6H [facility] Last Infusion: 10/24/18 10:19 Dose: Infused Sodium Chloride (Ns Inj) 1,000 mls @ 100 mls/hr IV.CONT .Q10H [facility] Last Admin: 10/24/18 06:16 Dose: 100 mls/hr Morphine Sulfate (Morphine Inj) 2 mg IV.PUSH Q4H PRN PRN Reason: PAIN SCALE 6 TO 10 Ondansetron HCl (Zofran Inj) 4 mg IV.PUSH Q6H PRN PRN Reason: NAUSEA OR VOMITING Sodium Chloride (Ns Flush) 2 ml IV.FLUSH PRN PRN PRN Reason: FLUSH AFTER USING IV ACCESS Sodium Chloride (Ns Flush) 2 ml IV.FLUSH BID [facility] Last Admin: 10/24/18 09:41 Dose: 2 ml <Sussy Akers C - Last Filed: 10/24/18 12:14> Active Medications: Active Medications Acetaminophen (Tylenol) 650 mg PO Q4H PRN PRN Reason: Temp > 100.4 Bisacodyl (Dulcolax Supp) 10 mg RECTAL DAILY PRN PRN Reason: SEVERE CONSITIPATION Piperacillin/Tazobactam/Dextrose (Zosyn 4.5 Gm Premix) 4.5 gm in 100 mls @ 200 mls/hr IV.SIG ONCE PILAR Piperacillin/Tazobactam/Dextrose (Zosyn 4.5 Gm Premix) 4.5 gm in 100 mls @ 200 mls/hr IV.SIG Q6H [facility] Last Infusion: 10/24/18 16:15 Dose: Infused Sodium Chloride (Ns Inj) 1,000 mls @ 100 mls/hr IV.CONT .Q10H [facility] Last Infusion: 10/24/18 18:17 Dose: 100 mls/hr Morphine Sulfate (Morphine Inj) 2 mg IV.PUSH Q4H PRN PRN Reason: PAIN SCALE 6 TO 10 Ondansetron HCl (Zofran Inj) 4 mg IV.PUSH Q6H PRN PRN Reason: NAUSEA OR VOMITING Sodium Chloride (Ns Flush) 2 ml IV.FLUSH PRN PRN PRN Reason: FLUSH AFTER USING IV ACCESS Sodium Chloride (Ns Flush) 2 ml IV.FLUSH BID [facility] Last Admin: 10/24/18 09:41 Dose: 2 ml <Sami Lerma - Last Filed: 10/24/18 20:27> Allergies Allergy/AdvReac Type Severity Reaction Status Date / Time No Known Allergies Allergy Verified 10/24/18 01:48 Home Medications Medication Instructions Recorded Confirmed Type allopurinol 100 mg PO DAILY 10/24/18 10/24/18 History amlodipine 5 mg PO DAILY 10/24/18 10/24/18 History anastrozole 1 mg PO DAILY 10/24/18 10/24/18 History atorvastatin 10 mg PO DAILY 10/24/18 10/24/18 History furosemide 20 mg PO DAILY 10/24/18 10/24/18 History gabapentin 300 mg PO DAILY 10/24/18 10/24/18 History isosorbide mononitrate 30 mg PO DAILY 10/24/18 10/24/18 History loratadine 10 mg DAILY 10/24/18 10/24/18 History losartan 50 mg PO DAILY 10/24/18 10/24/18 History metformin 1,000 mg PO QPM 10/24/18 10/24/18 History ranitidine HCl 150 mg PO DAILY 10/24/18 10/24/18 History Exam Vital signs: Vital Signs 10/24/18 00:42 10/24/18 04:00 10/24/18 07:59 Temperature 98.8 F 99.5 F 99.2 F Pulse Rate 91 H 86 85 Respiratory Rate 16 18 16 Blood Pressure 148/74 H 158/70 H 143/73 H Pulse Oximetry 99 94 L 96 10/24/18 11:31 Temperature 97.6 F Pulse Rate 80 Respiratory Rate 18 Blood Pressure 123/61 Pulse Oximetry 96 Intake & Output 10/23/18 10/24/18 10/24/18 18:59 06:59 18:59 Intake Total 2350 / 2350 1300 / 1300 Balance 2350 / 2350 1300 / 1300 Weight 72.575 kg Intake: IV 1250 / 1250 1300 / 1300 Magnesium Sulfate 1 gm/D5W 100 200 / 200 ml Premix 100 ML @ 100 mls/hr IV.SIG ONCE ONE Rx#:[id number] Zosyn 4.5 GM Premix 4.5 gm In 100 / 100 100 ml @ 200 mls/hr IV.SIG Q6H [facility] Rx#:[id number] NS Inj 1,000 ML @ 1000 mls/hr 1000 / 1000 1000 / 1000 IV.SIG BOLUS PILAR Rx#:[id number] Vancomycin Inj 1,000 MG In NS 250 / 250 Inj 250 ML @ 250 mls/hr IV.SIG ONCE ONE Rx#:[id number] Other 1100 / 1100 Other: Other Intake Source Saline Solution # Voids 1 Weight On Admission 72.575 kg <Sussy Akers - Last Filed: 10/24/18 12:14> Vital signs: Vital Signs 10/24/18 00:42 10/24/18 04:00 10/24/18 07:59 Temperature 98.8 F 99.5 F 99.2 F Pulse Rate 91 H 86 85 Respiratory Rate 16 18 16 Blood Pressure 148/74 H 158/70 H 143/73 H Pulse Oximetry 99 94 L 96 10/24/18 11:31 10/24/18 16:55 Temperature 97.6 F 99.0 F Pulse Rate 80 77 Respiratory Rate 18 20 Blood Pressure 123/61 119/81 Pulse Oximetry 96 98 Intake & Output 10/24/18 10/24/18 10/25/18 06:59 18:59 06:59 Intake Total 2350 / 2350 1809 / 1809 Balance 2350 / 2350 1809 / 1809 Weight 72.575 kg Intake: IV 1250 / 1250 1809 / 1809 NS Inj 1,000 ML @ 100 mls/hr IV 409 / 409 .CONT .Q10H [facility] Rx#:[id number] Magnesium Sulfate 1 gm/D5W 100 200 / 200 ml Premix 100 ML @ 100 mls/hr IV.SIG ONCE ONE Rx#:[id number] Zosyn 4.5 GM Premix 4.5 gm In 200 / 200 100 ml @ 200 mls/hr IV.SIG Q6H [facility] Rx#:[id number] NS Inj 1,000 ML @ 1000 mls/hr 1000 / 1000 1000 / 1000 IV.SIG BOLUS PILAR Rx#:[id number] Vancomycin Inj 1,000 MG In NS 250 / 250 Inj 250 ML @ 250 mls/hr IV.SIG ONCE ONE Rx#:[id number] Other 1100 / 1100 Other: Other Intake Source Saline Solution # Voids 1 3 Date of Last Bowel Movement 10/23/18 Weight On Admission 72.575 kg <Sami Lerma - Last Filed: 10/24/18 20:27> Results - Labs CBC & Chem 7: 10/24/18 02:00 10/24/18 02:00 Labs: Laboratory Results - last 24 hr 10/24/18 10/24/18 10/24/18 02:00 02:00 02:00 WBC 18.4 H RBC 4.63 Hgb 11.9 Hct 37.3 MCV 80.6 MCH 25.6 L MCHC 31.7 L RDW 15.4 Plt Count 230 MPV 9.5 Neut % (Auto) 94.0 H Lymph % (Auto) 1.8 L Clare % (Auto) 3.8 Eos % (Auto) 0.0 Baso % (Auto) 0.4 Neut # (Auto) 17.3 H Lymph # (Auto) 0.3 L Clare # (Auto) 0.7 Eos # (Auto) 0.0 Baso # (Auto) 0.1 WBC Differential . Differential Comment Auto diff final PT 10.7 INR 1.1 Sodium 135 L Potassium 4.2 Chloride 101 Carbon Dioxide 23.3 Anion Gap 11 BUN 17 Creatinine 1.23 H Estimated GFR 42 L POC Glucose Random Glucose 152 H Lactic Acid Calcium 8.8 Magnesium 1.4 L Total Bilirubin 2.0 H AST 181 H ALT 120 H Alkaline Phosphatase 83 Troponin I Less than 0.02 L Total Protein 8.1 Albumin 3.8 Lipase 52603 H Urine Color Urine Clarity Urine pH Ur Specific Barrow Urine Protein Urine Glucose (UA) Urine Ketones Urine Occult Blood Urine Nitrate Urine Bilirubin Urine Urobilinogen Ur Leukocyte Esterase Urine RBC Ur Squamous Epith Cells Micro UA Comment Ur Microscopic Review Urine Culture Comments 10/24/18 10/24/18 10/24/18 02:30 04:25 05:10 WBC RBC Hgb Hct MCV MCH MCHC RDW Plt Count MPV Neut % (Auto) Lymph % (Auto) Clare % (Auto) Eos % (Auto) Baso % (Auto) Neut # (Auto) Lymph # (Auto) Clare # (Auto) Eos # (Auto) Baso # (Auto) WBC Differential Differential Comment PT INR Sodium Potassium Chloride Carbon Dioxide Anion Gap BUN Creatinine Estimated GFR POC Glucose Random Glucose Lactic Acid 2.7 H 2.8 H Calcium Magnesium Total Bilirubin AST ALT Alkaline Phosphatase Troponin I Total Protein Albumin Lipase Urine Color Yellow Urine Clarity Clear Urine pH 7.0 Ur Specific Barrow 1.009 Urine Protein Negative Urine Glucose (UA) Negative Urine Ketones Negative Urine Occult Blood Negative Urine Nitrate Negative Urine Bilirubin Negative Urine Urobilinogen Less than 2 Ur Leukocyte Esterase Negative Urine RBC 1 Ur Squamous Epith Cells <1 Micro UA Comment Culture not ind Ur Microscopic Review Not Reportable Urine Culture Comments Culture not ind 10/24/18 08:14 WBC RBC Hgb Hct MCV MCH MCHC RDW Plt Count MPV Neut % (Auto) Lymph % (Auto) Clare % (Auto) Eos % (Auto) Baso % (Auto) Neut # (Auto) Lymph # (Auto) Clare # (Auto) Eos # (Auto) Baso # (Auto) WBC Differential Differential Comment PT INR Sodium Potassium Chloride Carbon Dioxide Anion Gap BUN Creatinine Estimated GFR POC Glucose 126 H Random Glucose Lactic Acid Calcium Magnesium Total Bilirubin AST ALT Alkaline Phosphatase Troponin I Total Protein Albumin Lipase Urine Color Urine Clarity Urine pH Ur Specific [place] Urine Protein Urine Glucose (UA) Urine Ketones Urine Occult Blood Urine Nitrate Urine Bilirubin Urine Urobilinogen Ur Leukocyte Esterase Urine RBC Ur Squamous Epith Cells Micro UA Comment Ur Microscopic Review Urine Culture Comments - Imaging Impressions Abdomen/Pelvis CT 10/24/18 01:48 CONCLUSION: 1. The gallbladder is well distended but no calcified stones, wall thickening, or surrounding fluid observed. Otherwise, unremarkable exam. Chest X-Ray 10/24/18 02:22 CONCLUSION: No acute cardiopulmonary disease. Cholangiopancreatography MRI 10/24/18 03:06 CONCLUSION: 1. No gallstones or inflammatory change involving the gallbladder. <Sussy Akers - Last Filed: 10/24/18 12:14> - Labs CBC & Chem 7: 10/24/18 02:00 10/24/18 13:44 Labs: Laboratory Results - last 24 hr 10/24/18 10/24/18 10/24/18 02:00 02:00 02:00 WBC 18.4 H RBC 4.63 Hgb 11.9 Hct 37.3 MCV 80.6 MCH 25.6 L MCHC 31.7 L RDW 15.4 Plt Count 230 MPV 9.5 Neut % (Auto) 94.0 H Lymph % (Auto) 1.8 L Clare % (Auto) 3.8 Eos % (Auto) 0.0 Baso % (Auto) 0.4 Neut # (Auto) 17.3 H Lymph # (Auto) 0.3 L Clare # (Auto) 0.7 Eos # (Auto) 0.0 Baso # (Auto) 0.1 WBC Differential . Differential Comment Auto diff final PT 10.7 INR 1.1 Sodium 135 L Potassium 4.2 Chloride 101 Carbon Dioxide 23.3 Anion Gap 11 BUN 17 Creatinine 1.23 H Estimated GFR 42 L POC Glucose Random Glucose 152 H Lactic Acid Calcium 8.8 Magnesium 1.4 L Total Bilirubin 2.0 H AST 181 H ALT 120 H Alkaline Phosphatase 83 Troponin I Less than 0.02 L Total Protein 8.1 Albumin 3.8 Triglycerides Lipase 02364 H Urine Color Urine Clarity Urine pH Ur Specific B[place] Urine Protein Urine Glucose (UA) Urine Ketones Urine Occult Blood Urine Nitrate Urine Bilirubin Urine Urobilinogen Ur Leukocyte Esterase Urine RBC Ur Squamous Epith Cells Micro UA Comment Ur Microscopic Review Urine Culture Comments 10/24/18 10/24/18 10/24/18 02:30 04:25 05:10 WBC RBC Hgb Hct MCV MCH MCHC RDW Plt Count MPV Neut % (Auto) Lymph % (Auto) Clare % (Auto) Eos % (Auto) Baso % (Auto) Neut # (Auto) Lymph # (Auto) Clare # (Auto) Eos # (Auto) Baso # (Auto) WBC Differential Differential Comment PT INR Sodium Potassium Chloride Carbon Dioxide Anion Gap BUN Creatinine Estimated GFR POC Glucose Random Glucose Lactic Acid 2.7 H 2.8 H Calcium Magnesium Total Bilirubin AST ALT Alkaline Phosphatase Troponin I Total Protein Albumin Triglycerides Lipase Urine Color Yellow Urine Clarity Clear Urine pH 7.0 Ur Specific B[place] 1.009 Urine Protein Negative Urine Glucose (UA) Negative Urine Ketones Negative Urine Occult Blood Negative Urine Nitrate Negative Urine Bilirubin Negative Urine Urobilinogen Less than 2 Ur Leukocyte Esterase Negative Urine RBC 1 Ur Squamous Epith Cells <1 Micro UA Comment Culture not ind Ur Microscopic Review Not Reportable Urine Culture Comments Culture not ind 10/24/18 10/24/18 10/24/18 08:14 12:00 12:21 WBC RBC Hgb Hct MCV MCH MCHC RDW Plt Count MPV Neut % (Auto) Lymph % (Auto) Clare % (Auto) Eos % (Auto) Baso % (Auto) Neut # (Auto) Lymph # (Auto) Clare # (Auto) Eos # (Auto) Baso # (Auto) WBC Differential Differential Comment PT INR Sodium Potassium Chloride Carbon Dioxide Anion Gap BUN Creatinine Estimated GFR POC Glucose 126 H 96 Random Glucose Lactic Acid Calcium Magnesium Total Bilirubin AST ALT Alkaline Phosphatase Troponin I Total Protein Albumin Triglycerides 48 Lipase Urine Color Urine Clarity Urine pH Ur Specific [place] Urine Protein Urine Glucose (UA) Urine Ketones Urine Occult Blood Urine Nitrate Urine Bilirubin Urine Urobilinogen Ur Leukocyte Esterase Urine RBC Ur Squamous Epith Cells Micro UA Comment Ur Microscopic Review Urine Culture Comments 10/24/18 10/24/18 13:44 13:44 WBC RBC Hgb Hct MCV MCH MCHC RDW Plt Count MPV Neut % (Auto) Lymph % (Auto) Clare % (Auto) Eos % (Auto) Baso % (Auto) Neut # (Auto) Lymph # (Auto) Clare # (Auto) Eos # (Auto) Baso # (Auto) WBC Differential Differential Comment PT INR Sodium 139 Potassium 3.9 Chloride 106 Carbon Dioxide 23.3 Anion Gap 10 BUN 13 Creatinine 0.99 Estimated GFR POC Glucose Random Glucose 87 Lactic Acid 1.5 Calcium 8.3 L Magnesium Total Bilirubin 2.4 H AST 107 H ALT 101 H Alkaline Phosphatase 65 Troponin I Total Protein 6.7 D Albumin 2.9 L D Triglycerides Lipase 31628 H Urine Color Urine Clarity Urine pH Ur Specific [place] Urine Protein Urine Glucose (UA) Urine Ketones Urine Occult Blood Urine Nitrate Urine Bilirubin Urine Urobilinogen Ur Leukocyte Esterase Urine RBC Ur Squamous Epith Cells Micro UA Comment Ur Microscopic Review Urine Culture Comments - Imaging Impressions Abdomen/Pelvis CT 10/24/18 01:48 CONCLUSION: 1. The gallbladder is well distended but no calcified stones, wall thickening, or surrounding fluid observed. Otherwise, unremarkable exam. Chest X-Ray 10/24/18 02:22 CONCLUSION: No acute cardiopulmonary disease. Cholangiopancreatography MRI 10/24/18 03:06 CONCLUSION: 1. No gallstones or inflammatory change involving the gallbladder. <Sami Lerma E - Last Filed: 10/24/18 20:27> Assessment and Plan (1) Pancreatitis Status: Acute Code(s): K85.90 - Acute pancreatitis without necrosis or infection, unspecified - Plan 1. Pancreatitis with sepsis. No evidence of cholecystitis or cholangitis. Lipase elevated at 52,220, total bilirubin 2.0, AST 1.81, ALT 120, alk phos 83. Plan: Keep n.p.o. Continue antibiotics with IV Zosyn Supportive treatment with IV hydration, analgesics/antiemetics as needed Monitor lipase and LFTs Triglyceride level - Attending Attestation Dr. Lerma <Sussy Akers - Last Filed: 10/24/18 12:14> (1) Pancreatitis Status: Acute Code(s): K85.90 - Acute pancreatitis without necrosis or infection, unspecified - Attending Attestation Patient seen and examined Agree with above Continue with current supportive care Monitor labs The triglycerides have come back normal Liver function tests slightly elevated possibly indicating that the patient may have passed the stone we will continue to monitor labs and further recommendations she will depend on the hospital course <Sami Lerma E - Last Filed: 10/24/18 20:27> <Sussy Akers C - Last Filed: 10/24/18 12:14> (1) Pancreatitis Qualifiers: Chronicity: acute Pancreatitis type: biliary <Sami Lerma E - Last Filed: 10/24/18 20:27> (1) Pancreatitis Qualifiers: Chronicity: acute Pancreatitis type: idiopathic
[2018-10-24 14:44] LABS: Albumin 2.9 g/dL (3.4-5.0); Anion Gap 10 meq/L (5-15); Aspartate Aminotransferase 107 U/L (15-37); Blood Urea Nitrogen 13 mg/dL (7-18); Calcium 8.3 mg/dL (8.5-10.1); Carbon Dioxide 23.3 meq/L (21.0-32.0); Chloride 106 meq/L (98-107); Glucose,Random 87 mg/dL (74-106); Potassium 3.9 meq/L (3.5-5.1); Sodium 139 meq/L (136-145)
[2018-10-24 14:45] LABS: Alanine Aminotransferase 101 U/L (10-53)
[2018-10-24 14:47] LABS: Alkaline Phosphatase 65 U/L (45-117); Lipase 11940 U/L (73-393); Total Protein 6.7 g/dL (6.4-8.2)
--- NOTE | 2018-10-24 17:52 | P.CONGS ---
[facility] Consult Note Consult date: 10/24/18 Reason for consult: abdominal pain Narrative: CONSULTATION NOTE FOR SURGICAL ATTENDING, DR. LAYTON MIKE 77-year-old female with complaints of abdominal pain. She did not relates any food intake is gradual intake increasing her pain in the abdomen epigastric region CT scan was done question possible gallbladder disease. It was found her amylase was markedly elevated. Surgery was consulted she is had a similar episode when she lived in [place] years ago. PMFSH - History History Provided By: Patient, Family Member - Medical History Medical History: Medical History (Last Updated 10/24/18 @ 17:52 by Layton Mike MD) H/O: hysterectomy (Acute) Hypertension (Acute) Diabetes (Acute) Hx of breast cancer (Acute) - Social History I have reviewed the patient's Social History: Yes - Tobacco History Second Hand Smoke Exposure: No Tobacco Use In Past 30 Days: No Smoking Status: Never smoker - Alcohol History How Often Do You Have a Drink Containing Alcohol: Never - Substance Use History Substance History: No History of Abuse - Travel History Recent Travel in the [place] Within the Last 8 Weeks: No Recent Travel Out of the Country Within the Last 8 Weeks: No - Immunization History Tetanus Immunization: Unsure Hx Influenza Vaccine This Season: Yes Medications and Allergies Active Medications: Active Medications Acetaminophen (Tylenol) 650 mg PO Q4H PRN PRN Reason: Temp > 100.4 Bisacodyl (Dulcolax Supp) 10 mg RECTAL DAILY PRN PRN Reason: SEVERE CONSITIPATION Piperacillin/Tazobactam/Dextrose (Zosyn 4.5 Gm Premix) 4.5 gm in 100 mls @ 200 mls/hr IV.SIG ONCE PILAR Piperacillin/Tazobactam/Dextrose (Zosyn 4.5 Gm Premix) 4.5 gm in 100 mls @ 200 mls/hr IV.SIG Q6H [facility] Last Admin: 10/24/18 15:42 Dose: 200 mls/hr Sodium Chloride (Ns Inj) 1,000 mls @ 100 mls/hr IV.CONT .Q10H [facility] Last Admin: 10/24/18 15:02 Dose: Not Given Morphine Sulfate (Morphine Inj) 2 mg IV.PUSH Q4H PRN PRN Reason: PAIN SCALE 6 TO 10 Ondansetron HCl (Zofran Inj) 4 mg IV.PUSH Q6H PRN PRN Reason: NAUSEA OR VOMITING Sodium Chloride (Ns Flush) 2 ml IV.FLUSH PRN PRN PRN Reason: FLUSH AFTER USING IV ACCESS Sodium Chloride (Ns Flush) 2 ml IV.FLUSH BID [facility] Last Admin: 10/24/18 09:41 Dose: 2 ml Allergies Allergy/AdvReac Type Severity Reaction Status Date / Time No Known Allergies Allergy Verified 10/24/18 01:48 Home Medications Medication Instructions Recorded Confirmed Type allopurinol 100 mg PO DAILY 10/24/18 10/24/18 History amlodipine 5 mg PO DAILY 10/24/18 10/24/18 History anastrozole 1 mg PO DAILY 10/24/18 10/24/18 History atorvastatin 10 mg PO DAILY 10/24/18 10/24/18 History furosemide 20 mg PO DAILY 10/24/18 10/24/18 History gabapentin 300 mg PO DAILY 10/24/18 10/24/18 History isosorbide mononitrate 30 mg PO DAILY 10/24/18 10/24/18 History loratadine 10 mg DAILY 10/24/18 10/24/18 History losartan 50 mg PO DAILY 10/24/18 10/24/18 History metformin 1,000 mg PO QPM 10/24/18 10/24/18 History ranitidine HCl 150 mg PO DAILY 10/24/18 10/24/18 History Exam Vital signs: Vital Signs 10/24/18 00:42 10/24/18 04:00 10/24/18 07:59 Temperature 98.8 F 99.5 F 99.2 F Pulse Rate 91 H 86 85 Respiratory Rate 16 18 16 Blood Pressure 148/74 H 158/70 H 143/73 H Pulse Oximetry 99 94 L 96 10/24/18 11:31 10/24/18 16:55 Temperature 97.6 F 99.0 F Pulse Rate 80 77 Respiratory Rate 18 20 Blood Pressure 123/61 119/81 Pulse Oximetry 96 98 Intake & Output 10/23/18 10/24/18 10/24/18 18:59 06:59 18:59 Intake Total 2350 / 2350 1300 / 1300 Balance 2350 / 2350 1300 / 1300 Weight 72.575 kg Intake: IV 1250 / 1250 1300 / 1300 Magnesium Sulfate 1 gm/D5W 100 200 / 200 ml Premix 100 ML @ 100 mls/hr IV.SIG ONCE ONE Rx#:[id number] Zosyn 4.5 GM Premix 4.5 gm In 100 / 100 100 ml @ 200 mls/hr IV.SIG Q6H [facility] Rx#:[id number] NS Inj 1,000 ML @ 1000 mls/hr 1000 / 1000 1000 / 1000 IV.SIG BOLUS PILAR Rx#:[id number] Vancomycin Inj 1,000 MG In NS 250 / 250 Inj 250 ML @ 250 mls/hr IV.SIG ONCE ONE Rx#:[id number] Other 1100 / 1100 Other: Other Intake Source Saline Solution # Voids 1 Date of Last Bowel Movement 10/23/18 Weight On Admission 72.575 kg Narrative: 77-year-old female Granddaughters in the room that assists in translating I spoke to the daughter on the phone she is alert oriented no focal deficits Examination shows no JVD Chest clear heart regular rate abdomen obese soft midepigastric tenderness without rebound or guarding no [place] sign Extremities moves all extremities well no clubbing cyanosis or edema Results - Labs 10/24/18 02:00 10/24/18 13:44 Laboratory Last Values WBC 18.4 th/mm3 (4.0-11.0) H 10/24/18 02:00 RBC 4.63 mil/mm3 (4.00-5.30) 10/24/18 02:00 Hgb 11.9 gm/dL (11.6-15.3) 10/24/18 02:00 Hct 37.3 % (35.0-46.0) 10/24/18 02:00 MCV 80.6 fL (80.0-100.0) 10/24/18 02:00 MCH 25.6 pg (27.0-34.0) L 10/24/18 02:00 MCHC 31.7 % (32.0-36.0) L 10/24/18 02:00 RDW 15.4 % (11.6-17.2) 10/24/18 02:00 Plt Count 230 th/mm3 (150-450) 10/24/18 02:00 MPV 9.5 fL (7.0-11.0) 10/24/18 02:00 Neut % (Auto) 94.0 % (16.0-70.0) H 10/24/18 02:00 Lymph % (Auto) 1.8 % (9.0-44.0) L 10/24/18 02:00 [place] % (Auto) 3.8 % (0.0-8.0) 10/24/18 02:00 Eos % (Auto) 0.0 % (0.0-4.0) 10/24/18 02:00 Baso % (Auto) 0.4 % (0.0-2.0) 10/24/18 02:00 Neut # (Auto) 17.3 th/mm3 (1.8-7.7) H 10/24/18 02:00 Lymph # (Auto) 0.3 th/mm3 (1.0-4.8) L 10/24/18 02:00 [place] # (Auto) 0.7 th/mm3 (0.0-0.9) 10/24/18 02:00 Eos # (Auto) 0.0 th/mm3 (0.0-0.4) 10/24/18 02:00 Baso # (Auto) 0.1 th/mm3 (0.0-0.2) 10/24/18 02:00 WBC Differential . 10/24/18 02:00 Differential Comment Auto diff final 10/24/18 02:00 PT 10.7 sec (9.8-11.6) 10/24/18 02:00 INR 1.1 Ratio 10/24/18 02:00 Sodium 139 meq/L (136-145) 10/24/18 13:44 Potassium 3.9 meq/L (3.5-5.1) 10/24/18 13:44 Chloride 106 meq/L (98-107) 10/24/18 13:44 Carbon Dioxide 23.3 meq/L (21.0-32.0) 10/24/18 13:44 Anion Gap 10 meq/L (5-15) 10/24/18 13:44 BUN 13 mg/dL (7-18) 10/24/18 13:44 Creatinine 0.99 mg/dL (0.50-1.00) 10/24/18 13:44 Estimated GFR 42 mL/min (>89) L 10/24/18 02:00 POC Glucose 96 mg/dl (68-110) 10/24/18 12:21 Random Glucose 87 mg/dL (74-106) 10/24/18 13:44 Lactic Acid 1.5 mmol/L (0.4-2.0) 10/24/18 13:44 Calcium 8.3 mg/dL (8.5-10.1) L 10/24/18 13:44 Magnesium 1.4 mg/dL (1.5-2.5) L 10/24/18 02:00 Total Bilirubin 2.4 mg/dL (0.2-1.0) H 10/24/18 13:44 AST 107 U/L (15-37) H 10/24/18 13:44 ALT 101 U/L (10-53) H 10/24/18 13:44 Alkaline Phosphatase 65 U/L (45-117) 10/24/18 13:44 Troponin I Less than 0.02 ng/mL (0.02-0.05) L 10/24/18 02:00 Total Protein 6.7 g/dL (6.4-8.2) D 10/24/18 13:44 Albumin 2.9 g/dL (3.4-5.0) L D 10/24/18 13:44 Triglycerides 48 mg/dL (42-150) 10/24/18 12:00 Lipase 87481 U/L (73-393) H 10/24/18 13:44 Urine Color Yellow (Yellw/Straw) 10/24/18 04:25 Urine Clarity Clear (Clear) 10/24/18 04:25 Urine pH 7.0 (5.0-8.5) 10/24/18 04:25 Ur Specific [place] 1.009 (1.002-1.035) 10/24/18 04:25 Urine Protein Negative mg/dL (Neg-Trace) 10/24/18 04:25 Urine Glucose (UA) Negative mg/dL (Negative) 10/24/18 04:25 Urine Ketones Negative mg/dL (Negative) 10/24/18 04:25 Urine Occult Blood Negative (Negative) 10/24/18 04:25 Urine Nitrate Negative (Negative) 10/24/18 04:25 Urine Bilirubin Negative (Negative) 10/24/18 04:25 Urine Urobilinogen Less than 2 mg/dL (Less than 2) 10/24/18 04:25 Ur Leukocyte Esterase Negative (Negative) 10/24/18 04:25 Urine RBC 1 /hpf (0-3) 10/24/18 04:25 Ur Squamous Epith Cells <1 /hpf (0-5) 10/24/18 04:25 Micro UA Comment Culture not ind 10/24/18 04:25 Ur Microscopic Review Not Reportable 10/24/18 04:25 Urine Culture Comments Culture not ind 10/24/18 04:25 - Imaging Imaging: ITS Impressions Abdomen/Pelvis CT 10/24/18 01:48 CONCLUSION: 1. The gallbladder is well distended but no calcified stones, wall thickening, or surrounding fluid observed. Otherwise, unremarkable exam. Chest X-Ray 10/24/18 02:22 CONCLUSION: No acute cardiopulmonary disease. Cholangiopancreatography MRI 10/24/18 03:06 CONCLUSION: 1. No gallstones or inflammatory change involving the gallbladder. Assessment and Plan - Assessment (1) Pancreatitis Code(s): K85.90 - Acute pancreatitis without necrosis or infection, unspecified Status: Acute Qualifiers: Chronicity: acute Pancreatitis type: idiopathic (2) Elevated WBC count Code(s): D72.829 - Elevated white blood cell count, unspecified Status: Acute (3) H/O: hysterectomy Code(s): Z90.710 - Acquired absence of both cervix and uterus Status: Acute (4) Hypertension Code(s): I10 - Essential (primary) hypertension Status: Acute (5) Diabetes Code(s): E11.9 - Type 2 diabetes mellitus without complications Status: Acute (6) Hx of breast cancer Code(s): Z85.3 - Personal history of malignant neoplasm of breast Status: Acute (7) Elevated amylase Code(s): R74.8 - Abnormal levels of other serum enzymes Status: Acute - Plan 77-year-old female with epigastric tenderness elevated amylase with normal CT scan of the gallbladder and normal MRCP of the gallbladder and biliary tree. At this time it appears that she has pancreatitis from a non-biliary source. No surgical intervention at this time. Treatment of pancreatitis Fluids and symptomatic relief - Attending Attestation CONSULTATION NOTE FOR SURGICAL ATTENDING, DR. LAYTON MIKE I attest that I had a [id number] encounter with the patient on the same day, and personally performed and documented my assessment and findings in the medical record. The following services were provided during this hospital visit: Chart data review, vital sign assessments/reviewing monitor data Review of consultations notes if present. Medication orders/review and/or management Ordering and/or reviewing lab tests Ordering and/or interpreting/reviewing x-rays and/or diagnostic studies Care of the patient and discussion of the patient with the care team Documentation time To help prompt me to consider important information that might be impacting today's encounter and assessment, Information from prior notes written by myself or my colleagues may have been "brought forward/copy and pasted" into today's note.
[2018-10-25] MEDS: Piperacil/Tazo 4.5 GM Premix 4.5 GM/100 ML BAG IV.SIG SCH ×6 (04:40→23:00)
[2018-10-25 05:57] LABS: Baso % (Auto) 0.4 % (0.0-2.0); Eos % (Auto) 0.1 % (0.0-4.0); Hematocrit 35.3 % (35.0-46.0); Hemoglobin 11.4 gm/dL (11.6-15.3); Lymph # (Auto) 0.3 th/mm3 (1.0-4.8); Lymph % (Auto) 2.6 % (9.0-44.0); Mean Corpuscular HGB Conc 32.3 % (32.0-36.0); Mean Corpuscular Hemoglobin 26.1 pg (27.0-34.0); Mean Corpuscular Volume 80.7 fL (80.0-100.0); Mean Platelet Volume 9.2 fL (7.0-11.0); Mono # (Auto) 0.4 th/mm3 (0.0-0.9); Mono % (Auto) 4.2 % (0.0-8.0); Neut # (Auto) 9.2 th/mm3 (1.8-7.7); Neut % (Auto) 92.7 % (16.0-70.0); Platelet Count 175 th/mm3 (150-450); Red Blood Count 4.38 mil/mm3 (4.00-5.30); Red Cell Distribution Width 15.2 % (11.6-17.2); White Blood Count 9.9 th/mm3 (4.0-11.0)
[2018-10-25 06:12] LABS: Albumin 2.6 g/dL (3.4-5.0); Anion Gap 11 meq/L (5-15); Aspartate Aminotransferase 81 U/L (15-37); Blood Urea Nitrogen 13 mg/dL (7-18); Calcium 8.2 mg/dL (8.5-10.1); Carbon Dioxide 19.2 meq/L (21.0-32.0); Chloride 110 meq/L (98-107); Glucose,Random 88 mg/dL (74-106); Magnesium 1.4 mg/dL (1.5-2.5); Potassium 3.9 meq/L (3.5-5.1); Sodium 140 meq/L (136-145)
[2018-10-25 06:15] LABS: Alanine Aminotransferase 85 U/L (10-53); Alkaline Phosphatase 78 U/L (45-117); Lipase 6004 U/L (73-393); Total Protein 6.6 g/dL (6.4-8.2)
[2018-10-25] MEDS: Sod Chloride 0.9% Inj 1,000 ML IV.CONT SCH ×3 (09:17→23:57)
--- NOTE | 2018-10-25 11:50 | P.PNIM ---
Subjective Interval history: Follow-up for pancreatitis. Patient is doing well. She had some lower abdominal pain but now resolved. Family members at bedside. No fever , chills. Physical Exam Vital signs: Vital Signs 10/24/18 16:55 10/24/18 20:00 10/25/18 00:00 Temperature 99.0 F 98.4 F 98.5 F Pulse Rate 77 75 74 Respiratory Rate 20 19 15 Blood Pressure 119/81 116/75 147/86 H Pulse Oximetry 98 94 L 95 10/25/18 04:29 10/25/18 05:22 10/25/18 07:10 Temperature 97.8 F 98.8 F Pulse Rate 111 H 110 H 98 H Respiratory Rate 17 16 Blood Pressure 156/52 H 130/70 Pulse Oximetry 95 98 97 Intake & Output 10/24/18 10/25/18 10/25/18 18:59 06:59 18:59 Intake Total 1809 / 1809 791 / 791 Balance 1809 / 1809 791 / 791 Weight 74.6 kg Intake: IV 1809 / 1809 791 / 791 NS Inj 1,000 ML @ 100 mls/hr IV 409 / 409 591 / 591 .CONT .Q10H [facility] Rx#:[id number] Magnesium Sulfate 1 gm/D5W 100 200 / 200 ml Premix 100 ML @ 100 mls/hr IV.SIG ONCE ONE Rx#:[id number] Zosyn 4.5 GM Premix 4.5 gm In 200 / 200 200 / 200 100 ml @ 200 mls/hr IV.SIG Q6H [facility] Rx#:[id number] NS Inj 1,000 ML @ 1000 mls/hr 1000 / 1000 IV.SIG BOLUS PILAR Rx#:[id number] Other: # Voids 3 Date of Last Bowel Movement 10/23/18 Narrative: GENERAL: Alert, NAD. SKIN: Warm and dry. HEAD: Normocephalic. EYES: No scleral icterus. No injection or drainage. NECK: Supple, trachea midline. No JVD or lymphadenopathy. CARDIOVASCULAR: Regular rate and rhythm without murmurs, gallops, or rubs. RESPIRATORY: Breath sounds equal bilaterally. No accessory muscle use. GASTROINTESTINAL: Abdomen soft, non-tender, nondistended. MUSCULOSKELETAL: No cyanosis, or edema. BACK: Nontender without obvious deformity. No CVA tenderness. Results Labs CBC & Chem 7: 02/25/19 05:00 10/25/18 05:00 Labs: Microbiology 10/24/18 03:35 Blood - Peripheral Aerobic Blood Culture - Preliminary gram negative rods 10/24/18 03:35 Blood - Peripheral Anaerobic Blood Culture - Preliminary gram negative rods 10/24/18 03:30 Blood - Peripheral Aerobic Blood Culture - Preliminary gram negative rods 10/24/18 03:30 Blood - Peripheral Anaerobic Blood Culture - Preliminary gram negative rods Imaging Imaging: Impressions Abdomen/Pelvis CT 10/24/18 01:48 CONCLUSION: 1. The gallbladder is well distended but no calcified stones, wall thickening, or surrounding fluid observed. Otherwise, unremarkable exam. Chest X-Ray 10/24/18 02:22 CONCLUSION: No acute cardiopulmonary disease. Cholangiopancreatography MRI 10/24/18 03:06 CONCLUSION: 1. No gallstones or inflammatory change involving the gallbladder. Assessment and Plan (1) Pancreatitis: Code(s): K85.90 - Acute pancreatitis without necrosis or infection, unspecified Status: Acute (2) Elevated WBC count: Code(s): D72.829 - Elevated white blood cell count, unspecified Status: Acute (3) H/O: hysterectomy: Code(s): Z90.710 - Acquired absence of both cervix and uterus Status: Acute (4) Hypertension: Code(s): I10 - Essential (primary) hypertension Status: Acute (5) Diabetes: Code(s): E11.9 - Type 2 diabetes mellitus without complications Status: Acute (6) Hx of breast cancer: Code(s): Z85.3 - Personal history of malignant neoplasm of breast Status: Acute (7) Elevated amylase: Code(s): R74.8 - Abnormal levels of other serum enzymes Status: Acute Plan 77-year-old [place] female with PMH of HTN, DM and h/o Breast CA who was brought to the ER for c/o acute onset of abdominal pain, nausea and vomiting. Sepsis - present on admission HR 90's, WBC 18, Lactic Acid 2.4, Source - suspected Cholecystitis. Possible drug induced Acute Pancreatitis Gram negative bacteremia -On admission, Lipase 82714, Tbili 2.0, AST 181, ALT 120, Alk phos 83 -Patient takes Lasix at home. MRCP unremarkable, normal TG levels. Autoimmune or anatomic causes would be unusual at this point. -There are case reports about Lasix induced pancreatitis. -CT abdomen/pelvis reviewed, shows gallbladder is well distended but no calcified stones, wall thickening, or surrounding fluid observed. -MRCP shows No gallstones or inflammatory change involving the gallbladder -Continue antibiotics with IV Zosyn, we can likely transition to Levaquin PO upon discharge. -Supportive treatment with IV hydration, analgesics/antiemetics as needed. -GI, General surgery following. No plans for surgery at this point. -LFTs trending down. Although we do not typically trend lipase, it is also trending down to 6000. Acute kidney injury -Creatinine 1.23 --> 1.04. Continue hydration. Hypomagnesemia -Mg 1.4, suspect secondary to recent vomiting -given IV Mag 1G x 2. Diabetes mellitus Hypertension -Continue metformin upon discharge. -Patient is on Losartan, Lasix, Imdur at home. We are holding these for now. BP is within normal range. Full code. Lovenox for DVT prophylaxis. Progress Note: Quality VTE Deep Vein Thrombosis/Pulmonary Embolism Present on Admission: No _ (1) Diabetes Qualifiers: Chronic kidney disease stage: Diabetes mellitus complication detail: Diabetes mellitus complication status: Diabetes mellitus manager long term care insulin use : Diabetes mellitus macular edema: Diabetes mellitus type: Diabetic retinopathy severity: Laterality: Proliferative retinopathy type: (2) Elevated WBC count Qualifiers: Leukocytosis type: (3) Pancreatitis Qualifiers: Acute pancreatitis complication: Chronicity: acute Pancreatitis type: idiopathic (4) Hypertension Qualifiers: Hypertension type:
--- NOTE | 2018-10-25 15:27 | P.PNGI ---
Subjective Interval history: Patient awake alert Daughter visiting Patient denies abdominal pain nausea vomiting States tolerating clear liquid diet Likely passed a stone Lipase improving Physical Exam Vital signs: Vital Signs 10/24/18 16:55 10/24/18 20:00 10/25/18 00:00 Temperature 99.0 F 98.4 F 98.5 F Pulse Rate 77 75 74 Respiratory Rate 20 19 15 Blood Pressure 119/81 116/75 147/86 H Pulse Oximetry 98 94 L 95 10/25/18 04:29 10/25/18 05:22 10/25/18 07:10 Temperature 97.8 F 98.8 F Pulse Rate 111 H 110 H 98 H Respiratory Rate 17 16 Blood Pressure 156/52 H 130/70 Pulse Oximetry 95 98 97 10/25/18 08:00 10/25/18 11:30 10/25/18 12:00 Temperature 97.4 F L Pulse Rate 90 80 81 Respiratory Rate 16 Blood Pressure 123/58 L Pulse Oximetry 100 Intake & Output 10/24/18 10/25/18 10/25/18 18:59 06:59 18:59 Intake Total 1809 / 1809 791 / 791 100 / 100 Balance 1809 / 1809 791 / 791 100 / 100 Weight 74.6 kg Intake: IV 1809 / 1809 791 / 791 100 / 100 NS Inj 1,000 ML @ 100 mls/hr IV 409 / 409 591 / 591 .CONT .Q10H [facility] Rx#:[id number] Magnesium Sulfate 1 gm/D5W 100 200 / 200 ml Premix 100 ML @ 100 mls/hr IV.SIG ONCE ONE Rx#:[id number] Zosyn 4.5 GM Premix 4.5 gm In 200 / 200 200 / 200 100 / 100 100 ml @ 200 mls/hr IV.SIG Q6H [facility] Rx#:[id number] NS Inj 1,000 ML @ 1000 mls/hr 1000 / 1000 IV.SIG BOLUS PILAR Rx#:[id number] Other: # Voids 3 Date of Last Bowel Movement 10/23/18 10/23/18 - Constitutional no acute distress, cooperative - Routine HEENT Exam Head: Present: normocephalic - Routine Respiratory Exam Present: CTA bilaterally. Absent: accessory muscle use - Routine Cardiovascular Exam Present: RRR - Routine Abdominal Exam Present: soft, normoactive bowel sounds. Absent: tenderness, distended - Routine Skin Exam Present: dry, warm - Routine Neurological Exam Present: alert, oriented X3 Results - Labs CBC & Chem 7: 10/25/18 05:00 10/25/18 05:00 Laboratory Results - last 24 hr 10/25/18 10/25/18 10/25/18 05:00 05:00 07:34 WBC 9.9 RBC 4.38 Hgb 11.4 L Hct 35.3 MCV 80.7 MCH 26.1 L MCHC 32.3 RDW 15.2 Plt Count 175 MPV 9.2 Neut % (Auto) 92.7 H Lymph % (Auto) 2.6 L [place] % (Auto) 4.2 Eos % (Auto) 0.1 Baso % (Auto) 0.4 Neut # (Auto) 9.2 H Lymph # (Auto) 0.3 L [place] # (Auto) 0.4 Eos # (Auto) 0.0 Baso # (Auto) 0.0 WBC Differential . Differential Comment Auto diff final Sodium 140 Potassium 3.9 Chloride 110 H Carbon Dioxide 19.2 L Anion Gap 11 BUN 13 Creatinine 1.04 H POC Glucose 73 Random Glucose 88 Calcium 8.2 L Magnesium 1.4 L Total Bilirubin 3.0 H AST 81 H ALT 85 H Alkaline Phosphatase 78 Total Protein 6.6 Albumin 2.6 L Lipase 6004 H 10/25/18 11:52 WBC RBC Hgb Hct MCV MCH MCHC RDW Plt Count MPV Neut % (Auto) Lymph % (Auto) [place] % (Auto) Eos % (Auto) Baso % (Auto) Neut # (Auto) Lymph # (Auto) [place] # (Auto) Eos # (Auto) Baso # (Auto) WBC Differential Differential Comment Sodium Potassium Chloride Carbon Dioxide Anion Gap BUN Creatinine POC Glucose 83 Random Glucose Calcium Magnesium Total Bilirubin AST ALT Alkaline Phosphatase Total Protein Albumin Lipase Microbiology 10/24/18 03:35 Blood - Peripheral Aerobic Blood Culture - Preliminary gram negative rods 10/24/18 03:35 Blood - Peripheral Anaerobic Blood Culture - Preliminary gram negative rods 10/24/18 03:30 Blood - Peripheral Aerobic Blood Culture - Preliminary gram negative rods 10/24/18 03:30 Blood - Peripheral Anaerobic Blood Culture - Preliminary gram negative rods - Imaging Impressions Abdomen/Pelvis CT 10/24/18 01:48 CONCLUSION: 1. The gallbladder is well distended but no calcified stones, wall thickening, or surrounding fluid observed. Otherwise, unremarkable exam. Chest X-Ray 10/24/18 02:22 CONCLUSION: No acute cardiopulmonary disease. Cholangiopancreatography MRI 10/24/18 03:06 CONCLUSION: 1. No gallstones or inflammatory change involving the gallbladder. Assessment and Plan (1) Pancreatitis Status: Acute Code(s): K85.90 - Acute pancreatitis without necrosis or infection, unspecified - Plan 1. Pancreatitis with sepsis. No evidence of cholecystitis or cholangitis. Lipase elevated at 52,220, total bilirubin 2.0, AST 1.81, ALT 120, alk phos 83. 10/25/2018 Pancreatitis-lipase 6004--improved from 11,940 Common bile duct stone with spontaneous passage--less likely of autoimmune pancreatitis WBC 9.9--no sign of cholangitis Triglycerides 48 Total bilirubin 3.0 AST 81 ALT 85 alk phos 78 improving--likely passed a stone 10/24/2018 MRCP revealed :Liver: The liver is homogeneous and normal in signal intensity with no focal defects. Intrahepatic Bile Ducts: There is no intrahepatic biliary ductal dilatation. Common Bile Duct: The common bile duct is normal in caliber at 7 mm. No filling defects or obstructing lesions are identified. Gallbladder: The gallbladder is normal with no evidence for cholelithiasis, gallbladder wall thickening, or pericholecystic fluid. Pancreas: The pancreas appears normal in signal with no focal parenchymal abnormalities. The pancreatic duct is normal in caliber with no filling defects , or obstructing lesions identified. A scoliotic and degenerative lumbar spine. --Patient denies abdominal pain nausea or vomiting. Lipase trending downward. Plan -Clear liquid diet -Continue IV antibiotics -IV hydration -Analgesics and antiemetics as per attending -Monitor labs--LFTs and lipase level -IgA pending -Supportive care -Further recommendations to follow This patient has been seen by myself and Dr. Uribe and this note is written on his behalf - Attending Attestation Dr. Uribe (1) Pancreatitis Qualifiers: Chronicity: acute Pancreatitis type: idiopathic
[2018-10-25] MEDS: Enoxaparin Inj 40 MG/0.4 ML Syringe SQ SCH (17:57)
[2018-10-26] MEDS: Sod Chloride 0.9% Inj 1,000 ML IV.CONT SCH (05:22)
[2018-10-26] MEDS: Piperacil/Tazo 4.5 GM Premix 4.5 GM/100 ML BAG IV.SIG SCH ×2 (06:01→14:30)
[2018-10-26 06:27] LABS: Albumin 2.3 g/dL (3.4-5.0); Anion Gap 8 meq/L (5-15); Aspartate Aminotransferase 66 U/L (15-37); Baso % (Auto) 0.2 % (0.0-2.0); Blood Urea Nitrogen 11 mg/dL (7-18); Calcium 7.8 mg/dL (8.5-10.1); Carbon Dioxide 19.8 meq/L (21.0-32.0); Chloride 113 meq/L (98-107); Eos # (Auto) 0.1 th/mm3 (0.0-0.4); Eos % (Auto) 1.2 % (0.0-4.0); Glucose,Random 89 mg/dL (74-106); Hematocrit 31.2 % (35.0-46.0); Hemoglobin 10.2 gm/dL (11.6-15.3); Lymph # (Auto) 0.9 th/mm3 (1.0-4.8); Lymph % (Auto) 9.7 % (9.0-44.0); Mean Corpuscular HGB Conc 32.6 % (32.0-36.0); Mean Corpuscular Hemoglobin 25.8 pg (27.0-34.0); Mean Corpuscular Volume 79.2 fL (80.0-100.0); Mean Platelet Volume 9.8 fL (7.0-11.0); Mono # (Auto) 0.5 th/mm3 (0.0-0.9); Mono % (Auto) 5.3 % (0.0-8.0); Neut # (Auto) 7.6 th/mm3 (1.8-7.7); Neut % (Auto) 83.6 % (16.0-70.0); Platelet Count 151 th/mm3 (150-450); Potassium 3.5 meq/L (3.5-5.1); Red Blood Count 3.94 mil/mm3 (4.00-5.30); Red Cell Distribution Width 15.6 % (11.6-17.2); Sodium 141 meq/L (136-145); White Blood Count 9.1 th/mm3 (4.0-11.0)
[2018-10-26 06:31] LABS: Alanine Aminotransferase 68 U/L (10-53); Alkaline Phosphatase 83 U/L (45-117); Lipase 4954 U/L (73-393)
[2018-10-26] MEDS: Enoxaparin Inj 40 MG/0.4 ML Syringe SQ SCH (08:57)
--- NOTE | 2018-10-26 09:44 | P.PNIM ---
Subjective Interval history: Follow-up for acute pancreatitis. Patient is currently doing well. Resting in bed. Denies any chest pain, shortness of breath, fever or chills. Denies any abdominal pain. Had bowel movement yesterday. Physical Exam Vital signs: Vital Signs 10/25/18 11:30 10/25/18 12:00 10/25/18 16:00 Temperature 97.4 F L 98.3 F Pulse Rate 80 81 78 Respiratory Rate 16 16 Blood Pressure 123/58 L 130/74 Pulse Oximetry 100 100 10/25/18 19:58 10/25/18 20:00 10/25/18 23:58 Temperature 98.4 F Pulse Rate 84 84 79 Respiratory Rate 15 Blood Pressure 138/75 Pulse Oximetry 100 10/26/18 00:00 10/26/18 04:00 10/26/18 04:02 Temperature 97.7 F 98.4 F Pulse Rate 77 72 68 Respiratory Rate 20 17 Blood Pressure 149/77 H 142/78 H Pulse Oximetry 100 98 10/26/18 08:00 Temperature 98 F Pulse Rate 80 Respiratory Rate 18 Blood Pressure 149/77 H Pulse Oximetry 96 Intake & Output 10/25/18 10/26/18 10/26/18 18:59 06:59 18:59 Intake Total 1540 / 1540 210 / 210 Balance 1540 / 1540 210 / 210 Weight 73.7 kg Intake: IV 1100 / 1100 210 / 210 NS Inj 1,000 ML @ 100 mls/hr IV 1000 / 1000 .CONT .Q10H PILAR Rx#:[id number] Zosyn 4.5 GM Premix 4.5 gm In 100 / 100 210 / 210 100 ml @ 200 mls/hr IV.SIG Q8H PILAR Rx#:[id number] Oral 440 / 440 Other: # Voids 4 4 Date of Last Bowel Movement 10/23/18 # Bowel Movements 0 Narrative: GENERAL: Alert, NAD. SKIN: Warm and dry. HEAD: Normocephalic. EYES: No scleral icterus. No injection or drainage. NECK: Supple, trachea midline. No JVD or lymphadenopathy. CARDIOVASCULAR: Regular rate and rhythm without murmurs, gallops, or rubs. RESPIRATORY: Breath sounds equal bilaterally. No accessory muscle use. GASTROINTESTINAL: Abdomen soft, non-tender, nondistended. MUSCULOSKELETAL: No cyanosis, or edema. BACK: Nontender without obvious deformity. No CVA tenderness. Results Labs CBC & Chem 7: 10/26/18 04:35 10/26/18 04:35 Labs: Microbiology 10/24/18 03:35 Blood - Peripheral Aerobic Blood Culture - Preliminary gram negative rods 10/24/18 03:35 Blood - Peripheral Anaerobic Blood Culture - Preliminary gram negative rods 10/24/18 03:30 Blood - Peripheral Aerobic Blood Culture - Preliminary gram negative rods 10/24/18 03:30 Blood - Peripheral Anaerobic Blood Culture - Preliminary gram negative rods Imaging Imaging: Impressions Abdomen/Pelvis CT 10/24/18 01:48 CONCLUSION: 1. The gallbladder is well distended but no calcified stones, wall thickening, or surrounding fluid observed. Otherwise, unremarkable exam. Chest X-Ray 10/24/18 02:22 CONCLUSION: No acute cardiopulmonary disease. Cholangiopancreatography MRI 10/24/18 03:06 CONCLUSION: 1. No gallstones or inflammatory change involving the gallbladder. Assessment and Plan (1) Pancreatitis: Code(s): K85.90 - Acute pancreatitis without necrosis or infection, unspecified Status: Acute Plan 77-year-old [place] female with PMH of HTN, DM and h/o Breast CA who was brought to the ER for c/o acute onset of abdominal pain, nausea and vomiting. Sepsis - present on admission HR 90's, WBC 18, Lactic Acid 2.4, Source - suspected Cholecystitis. Acute Pancreatitis - possibly related to a passed gallstone. Gram negative bacteremia -On admission, Lipase 56011, Tbili 2.0, AST 181, ALT 120, Alk phos 83 -Patient takes Lasix at home. MRCP unremarkable, normal TG levels. IgG subclass levels are pending. -There are case reports about Lasix induced pancreatitis. -CT abdomen/pelvis reviewed, shows gallbladder is well distended but no calcified stones, wall thickening, or surrounding fluid observed. -MRCP shows No gallstones or inflammatory change involving the gallbladder -Continue antibiotics with IV Zosyn, we can likely transition to Levaquin PO upon discharge. -Supportive treatment with IV hydration, analgesics/antiemetics as needed. -GI, General surgery following. No plans for surgery at this point. -LFTs trending down. Although we do not typically trend lipase, it is also trending down to 5000. Acute kidney injury -Creatinine 1.23 --> 0.75. Continue hydration. Hypomagnesemia -Mg 1.4, suspect secondary to recent vomiting -given IV Mag 1G x 2. Diabetes mellitus Hypertension -Continue metformin upon discharge. -Patient is on Amlodipine, Losartan, Lasix, Imdur at home. -Will re-start Amlodipine and Imdur. Full code. Lovenox for DVT prophylaxis. Discharge plan: We will advance diet to regular diet. If patient tolerates diet well, we can discharge her home today. Progress Note: Quality VTE Deep Vein Thrombosis/Pulmonary Embolism Present on Admission: No _ (1) Pancreatitis Qualifiers: Chronicity: acute Pancreatitis type: idiopathic Acute pancreatitis complication:
[2018-10-26] MEDS ORDERED: amLODIPine 5 MG Tablet PO SCH (09:45)
[2018-10-26] MEDS ORDERED: Isosorbide Mononitrate 30 MG ER 24HR Tablet (Imdur) PO SCH (09:45)
[2018-10-26 10:00] LABS: % Iron Saturation 13.7 % (20-50)
--- NOTE | 2018-10-26 12:56 | P.DS ---
DS: Providers Date of admission: 10/24/18 03:23 Primary care physician: UNKNOWN Consults: 10/24/18 03:26 Consult to Gastroenterology Routine Consulting Provider: Sami Lerma Reason for Consultation: Cholecystitis CONSULT FOR AM Notified:: Service Date Notified:: 10/24/18 Time Notified:: 05:40 Ordering Provider: DAVID Consult to General Surgery Routine Consulting Provider: Ed Sarkar Preferred Bread Wrapper Operator:: Ed Sarkar Patient known to:: Ed Sarkar Reason for Consultation: Cholecystitis, Dr. Sarkar aware no need to recall Notified:: Service Spoke with:: diaz Date Notified:: 10/24/18 Time Notified:: 05:41 Ordering Provider: DAVID 10/24/18 08:50 HUB Only Consult Order Routine Consulting Provider: [facility],Insurance Brief History from admission: This is a 77-year-old female with PMH of HTN, DM and h/o Breast CA who was brought to the ER for c/o abdominal pain, nausea and vomiting. History obtained from family at bedside. State pt w/ acute onset abdominal pain, severe, 10/10, located in RUQ, non-radiating, associated w/ nausea, vomiting and decreased PO intake. No fever or diarrhea. No h/o similar symptoms. On arrival, BP 148/74, HR 91, O2 sat 99% on RA, Afebrile. WBC 18.4. INR 1.1. Creatinine 1.23, no previous labs for comparison. Lactic Acid 2.7. Magnesium 1.4. Total Bili 2.0. AST 181, ALT 120 , ALP 83. Troponin negative. Lipase 52,220. CXR negative. CT Abdomen/Pelvis distention of gallbladder but no stones or thickening. S/p IV Abx, Gen Sx and GI consulted by ER physician, will eval in am. MRCP pending. DS: Diagnosis Discharge Diagnosis (1) Pancreatitis: Status: Acute DS: Summary 77-year-old female with PMH of HTN, DM and h/o Breast CA who was brought to the ER for c/o acute onset of abdominal pain, nausea and vomiting. Sepsis - present on admission HR 90's, WBC 18, Lactic Acid 2.4, Source - suspected Cholecystitis. Acute Pancreatitis - possibly related to a passed gallstone. Gram negative bacteremia -On admission, Lipase 41576, Tbili 2.0, AST 181, ALT 120, Alk phos 83 -Patient takes Lasix at home. MRCP unremarkable, normal TG levels. IgG subclass levels are pending. -There are case reports about Lasix induced pancreatitis. -CT abdomen/pelvis reviewed, shows gallbladder is well distended but no calcified stones, wall thickening, or surrounding fluid observed. -MRCP shows No gallstones or inflammatory change involving the gallbladder -Continue antibiotics with IV Zosyn. On discharge we continued Augmentin -Supportive treatment with IV hydration, analgesics/antiemetics as needed. -GI, General surgery following. No plans for surgery at this point. -LFTs trending down. Although we do not typically trend lipase, it is also trending down to 5000. -On 10/26/2018, patient tolerated diet well. We will re-draw blood cx. Family member has my cell phone number. -Patient has been afebrile. We will follow blood cx results. Update 10/28/2018: I discussed with patient's son and informed him that repeat Blood cx from 10/26/2018 is indeed negative. Continue Augmentin. Acute kidney injury -Creatinine 1.23 --> 0.75. Continue oral hydration. Hypomagnesemia -Mg 1.4, suspect secondary to recent vomiting -given IV Mag 1G x 2. Diabetes mellitus Hypertension -Continue metformin upon discharge. -Patient is on Amlodipine, Losartan, Lasix, Imdur at home. -Continue home meds. Full code. Lovenox for DVT prophylaxis. Time Spent with Patient Total time spent providing and/or coordinating discharge services: Greater than 30 minutes Quality: VTE Deep Vein Thrombosis/Pulmonary Embolism Present on Admission: No Exam Narrative Exam Narrative: GENERAL: Alert, NAD. SKIN: Warm and dry. HEAD: Normocephalic. EYES: No scleral icterus. No injection or drainage. NECK: Supple, trachea midline. No JVD or lymphadenopathy. CARDIOVASCULAR: Regular rate and rhythm without murmurs, gallops, or rubs. RESPIRATORY: Breath sounds equal bilaterally. No accessory muscle use. GASTROINTESTINAL: Abdomen soft, non-tender, nondistended. MUSCULOSKELETAL: No cyanosis, or edema. BACK: Nontender without obvious deformity. No CVA tenderness. Results Labs on day of discharge: Labs from last 24 hours 10/26/18 10/26/18 10/26/18 04:35 04:35 04:35 WBC 9.1 RBC 3.94 L Hgb 10.2 L Hct 31.2 L MCV 79.2 L MCH 25.8 L MCHC 32.6 RDW 15.6 Plt Count 151 MPV 9.8 Neut % (Auto) 83.6 H Lymph % (Auto) 9.7 [place] % (Auto) 5.3 Eos % (Auto) 1.2 Baso % (Auto) 0.2 Neut # (Auto) 7.6 Lymph # (Auto) 0.9 L [place] # (Auto) 0.5 Eos # (Auto) 0.1 Baso # (Auto) 0.0 WBC Differential . Differential Comment Auto diff final Sodium 141 Potassium 3.5 Chloride 113 H Carbon Dioxide 19.8 L Anion Gap 8 BUN 11 Creatinine 0.75 Random Glucose 89 Calcium 7.8 L Iron 30 L TIBC 218 L % Saturation 13.7 L Ferritin 91 Total Bilirubin 2.5 H AST 66 H ALT 68 H Alkaline Phosphatase 83 Total Protein 6.0 L D Albumin 2.3 L Lipase 4954 H IgG Total IgG1 IgG2 IgG3 IgG4 10/26/18 04:35 WBC RBC Hgb Hct MCV MCH MCHC RDW Plt Count MPV Neut % (Auto) Lymph % (Auto) [place] % (Auto) Eos % (Auto) Baso % (Auto) Neut # (Auto) Lymph # (Auto) [place] # (Auto) Eos # (Auto) Baso # (Auto) WBC Differential Differential Comment Sodium Potassium Chloride Carbon Dioxide Anion Gap BUN Creatinine Random Glucose Calcium Iron TIBC % Saturation Ferritin Total Bilirubin AST ALT Alkaline Phosphatase Total Protein Albumin Lipase IgG Total Pending IgG1 Pending IgG2 Pending IgG3 Pending IgG4 Pending Impressions ITS Impressions Abdomen/Pelvis CT 10/24/18 01:48 CONCLUSION: 1. The gallbladder is well distended but no calcified stones, wall thickening, or surrounding fluid observed. Otherwise, unremarkable exam. Chest X-Ray 10/24/18 02:22 CONCLUSION: No acute cardiopulmonary disease. Cholangiopancreatography MRI 10/24/18 03:06 CONCLUSION: 1. No gallstones or inflammatory change involving the gallbladder. Discharge Plan Discharge Disposition Patient Disposition: 01 Discharge Home Discharge Condition Condition: Good Discharge Order Discharge Orders: Discharge Order (Routine); Ordered 10/26/18 Ordered By: Reema Hess Discharge Details Anticipated Discharge Date: 10/26/18 Physicians Team Primary Care Provider: UNKNOWN, Attending Provider: Reema Hess Other Providers: Sami Lerma ; Ed Sarkar ; [facility],Insurance Rxs /Orders / Referrals /Forms Prescriptions: New amoxicillin-pot clavulanate [Augmentin] 875-125 mg tablet 1 tab PO Q12H Qty: 20 RF: 0 Continue allopurinol 100 mg Tablet 100 mg PO DAILY RF: 0 ranitidine HCl 150 mg Tablet 150 mg PO DAILY RF: 0 furosemide 20 mg Tablet 20 mg PO DAILY RF: 0 gabapentin 100 mg Capsule 300 mg PO DAILY RF: 0 metformin 500 mg Tablet Extended Release 24 Hr 1,000 mg PO QPM RF: 0 losartan 50 mg Tablet 50 mg PO DAILY RF: 0 anastrozole 1 mg Tablet 1 mg PO DAILY RF: 0 atorvastatin 10 mg Tablet 10 mg PO DAILY RF: 0 isosorbide mononitrate 30 mg Tablet Extended Release 24 Hr 30 mg PO DAILY RF: 0 amlodipine 5 mg Tablet 5 mg PO DAILY RF: 0 loratadine 10 mg Tablet 10 mg DAILY RF: 0 Referrals: UNKNOWN, [Primary Care Provider] - See Instructions (patient to call for follow up appointment) Discharge Instructions Patient Printed Instructions: Amoxicillin/Clavulanate Potassium (By mouth), Sepsis (GEN) Post Discharge Care Plan Care Plan Goals: Your Health Problems: Goals to Promote Your Health: * To prevent worsening of your condition * To maintain your health at the optimal level Directions to Meet Your Goals: * Take your medications as prescribed * Follow your dietary instruction * Follow activity as directed * Keep your appointments as scheduled * Take your immunizations and boosters as scheduled * If your symptoms worsen call your PCP * If no PCP go to Urgent Care or Emergency Room Smoking is dangerous to your health. Avoid second hand smoke. You may reach the 24-hour crisis hotline for domestic abuse at . Status ED Status: Left Department Discharge Information Discharge Date/Time: 10/26/18 14:49
== END 2018-10-26 14:49 | disposition home or self-care (01) | DRG 871 ==
LOC: NEPE 00:41 → NEDA 03:23 → NEPFCDU 05:26 → N04 13:11
PROVIDERS: ADMIT Hospitalist; ATTEND Hospitalist
DX: A41.50 Gram-negative sepsis, unspecified; E78.5 Hyperlipidemia, unspecified; Z79.84 Long term (current) use of oral hypoglycemic drugs; Z90.710 Acquired absence of both cervix and uterus; E11.9 Type 2 diabetes mellitus without complications; E83.42 Hypomagnesemia; N17.9 Acute kidney failure, unspecified; E86.0 Dehydration; K81.9 Cholecystitis, unspecified; I10 Essential (primary) hypertension; Z85.3 Personal history of malignant neoplasm of breast; K85.00 Idiopathic acute pancreatitis without necrosis or infection; K83.09 Other cholangitis; Z79.811 Long term (current) use of aromatase inhibitors
CPT/HCPCS: 71010; 71045; 74176; 74181; 76377; 80053; 81001; 82728; 82784; 82787; 82948; 82962; 83540; 83550; 83605; 83690; 83735; 84478; 84484; 85025; 85610; 87040; 87077; 87186; 87205; 90761; 90774; 90775; 90784; 93005; 96361; 96374; 96375; 99291; C8952; J1650; J2270; J2405; J2543; J3370; J3475; J7030; J7050